=== PATIENT | male | born 1960 | race Caucasian/White ===

== ENCOUNTER 2024-10-22 08:17 | Outpatient (AMB) | payer MEDICAID, SELFPAY ==
[2024-10-22 08:24] VITALS: BP 130/68; PULSE 55; O2SAT 97; BMI 25.9
--- NOTE | 2024-10-22 08:24 | A.OFFVIS_ITS ---
Vital Signs 10/22/24 08:24 Height 6 ft 1 in Weight 196 lb BMI 25.9 BP 130/68 Blood Pressure Location Lt brachial Position Sitting Pulse 55 Pulse Source Pulse Oximeter Pulse Oximetry (%) 97 Oxygen Delivery Method Room Air Intake Visit Reasons: Wrist Pain Intake Note: Patient is here for left wrist cortisone injection. HPI HPI Wrist Pain: Details: Last cortisone injection was in March. He is having constant left CMC and left 2nd PIP pain. [facility] Medical History (Updated 10/22/24 @ 22:52 by Hemant Murphy MD) ACL tear Aftercare following bilateral shoulder joint replacement surgery Surgical History (Updated 10/22/24 @ 08:31 by Maryan Villar CMA) Previous back surgery History of repair of right hip joint H/O right knee surgery Review of Systems Const All systems reviewed & are unremarkable except as noted in HPI and below Physical Exam Vital Signs: Last Vital Signs Pulse 55 10/22/24 08:24 BP 130/68 10/22/24 08:24 Pulse Ox 97 10/22/24 08:24 Oxygen Delivery Method Room Air 10/22/24 08:24 BMI result Body Mass Index 25.9 Const Other: General: Comfortable Skin: No lesions seen MSK: Squaring of bilateral CMCs. Tender left CMC on palpation. Left 2nd Sandra's node present with tenderness on palpation. There is subluxation of left 2nd PIP. Good mailroom supervisor bilateral. Office Procedures AMB Joint Injection/Aspiration Joint Injection/Aspiration Details: Left CMC Prep: site was prepped using aseptic technique Injected: 10 mg of, Kenalog, with 0.25 mL of and 1% plain lidocaine Procedure: The patient tolerated the procedure well. Postprocedure protocol was discussed with patient. Coding - Small Joint Procedure code (CPT) selection complete AMB Joint Injection/Aspiration Joint Injection/Aspiration Details: Left 2nd PIP Prep: site was prepped using aseptic technique Injected: 10 mg of, Kenalog, with 0.25 mL of and 1% plain lidocaine Procedure: The patient tolerated the procedure well. Postprocedure protocol was discussed with patient. Coding - Small Joint Procedure code (CPT) selection complete Office Meds lidocaine (PF) 10 mg/mL (1 %) injection solution Performing Provider: Hemant Murphy MD Performing Location: [facility] Administered by: Hemant Murphy MD on 10/22/24 22:47 Dose Route Admin Location Dispensed Lot Number Expiration Date [facility] Newspaper Editor Managing 2.5 mg Infiltration 2 mL [id number] [employer] Kenalog 40 mg/mL suspension for injection Performing Provider: Hemant Murphy MD Performing Location: [facility] Administered by: Hemant Murphy MD on 10/22/24 22:47 Dose Route Admin Location Dispensed Lot Number Expiration Date [facility] Newsp[employer] Managing 10 mg intra-articular 1 mL AP [id number] [employer] lidocaine (PF) 10 mg/mL (1 %) injection solution Performing Provider: Hemant Murphy MD Performing Location: [facility] Administered by: Hemant Murphy MD on 10/22/24 22:47 Dose Route Admin Location Dispensed Lot Number Expiration Date [facility] Newsp[employer] Managing 2.5 mg Infiltration 2 mL [id number] [employer] Kenalog 40 mg/mL suspension for injection Performing Provider: Hemant Murphy MD Performing Location: [facility] Administered by: Hemant Murphy MD on 10/22/24 22:47 Dose Route Admin Location Dispensed Lot Number Expiration Date [facility] Newsp[employer] Managing 10 mg intra-articular 1 mL AP [id number] [employer] Assessment & Plan Assessment & Plan (1) Osteoarthritis, hand: Comment: Pain is uncontrolled and left CMC and left 2nd PIP. Code(s): M19.049 - Primary osteoarthritis, unspecified hand Category: Medical Qualifiers: Osteoarthritis type: primary Laterality: left Qualified Code(s): M19.042 - Primary osteoarthritis, left hand Plan: Intra-articular cortisone injections given to left CMC and left 2nd PIP Return to clinic in 3 months [facility] requested Orders: Orders AMB Joint Injection/Aspiration Today M18.12 - Unilateral primary osteoarthritis of first carpometacarpal joint, left hand, M19.049 - Primary osteoarthritis, unspecified hand AMB Joint Injection/Aspiration Today M19.049 - Primary osteoarthritis, unspecified hand Medications: New lidocaine (PF) 2.5 mg (0.25 mL) Infiltration ONCE 0.25 mL 0RF M18.12 - Unilateral primary osteoarthritis of first carpometacarpal joint, left hand, M19.049 - Primary osteoarthritis, unspecified hand lidocaine (PF) 2.5 mg (0.25 mL) Infiltration ONCE 0.25 mL 0RF M19.049 - Primary osteoarthritis, unspecified hand diclofenac sodium 1% (Arthritis Pain (diclofenac)) apply to affected area every 4-6 hours PRN 2 grams topical QID 100 grams 11RF Kenalog (triamcinolone acetonide) 10 mg (0.25 mL) intra-articular ONCE 0.25 mL 0RF NS M18.12 - Unilateral primary osteoarthritis of first carpometacarpal joint, left hand, M19.049 - Primary osteoarthritis, unspecified hand Kenalog (triamcinolone acetonide) 10 mg (0.25 mL) intra-articular ONCE 0.25 mL 0RF NS M19.049 - Primary osteoarthritis, unspecified hand Coding Level of Care Code Est Pt Level 3 (94009) Complex EM visit Add On G2211 Diagnoses Primary osteoarthritis of left hand M19.042 Osteoarthritis type: primary Laterality: left CPT Codes Coding - 72507 - Small joint: 59206 - Small Joint ([id number]) Coding - 94622 - Small joint: 09847 - Small Joint ([id number])
== END 2024-10-22 09:04 | disposition home or self-care (01) ==
PROVIDERS: PCP Internal Medicine; Visit Provider Internal Medicine Rheumatology
DX: M18.12 Unilateral primary osteoarthritis of first carpometacarpal joint, left hand (principal); M19.049 Primary osteoarthritis, unspecified hand; M19.042 Primary osteoarthritis, left hand
CPT/HCPCS: 20600; 99213

== ENCOUNTER → 2024-10-22 08:17 | Outpatient (BNVA) | payer MEDICAID, SELFPAY | PROVIDERS: PCP Internal Medicine; Visit Provider Internal Medicine Rheumatology | DX: M19.042 Primary osteoarthritis, left hand (principal) | CPT/HCPCS: 20600; 99212; J2003; J3300 ==

== ENCOUNTER 2025-08-16 10:40 | Outpatient (AMB) | payer BC, MEDICARE, SELFPAY ==
[2025-08-16 10:42] VITALS: BMI 25.9
--- NOTE | 2025-08-16 10:42 | MHC.OFFVIS ---
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 Patient reports ongoing pain, he was seen at [facility] and was receiving cortisone injection. After a while these have stopped working and no longer provide him with relief. He attended therapy about a year ago and continues at home exercise. He complains of difficulty with stair use and walking his dog. He would like to discuss surgical intervention. He states that he is currently undergoing BCG treatment with urology and should be cleared in September to proceed with a replacement. Allergies No Known Allergies Allergy (Verified 08/16/25 10:52) Medication List - Last Reconciled 08/16/25 by Yessy Cheney PA-C bupropion HCl SR (Wellbutrin SR) 150 mg PO QAM clonazepam 0.5 mg PO DAILY diclofenac sodium 1% (Arthritis Pain (diclofenac)) 2 grams topical QID trazodone 50 mg PO BEDTIME PRN HPI HPI COMMERCIAL AGENT-Left Hip Pain: Details: 65 yo male presents to the office today for left hip OA. He had a RT LATRICIA performed by pilo in 2010. RT TKA by Dr okeefe in approx 3 years ago . He states his recovery was straight forward, no complicatons. Left hip pain has been present for the last few years. He was going to [facility], he had steroid injections every 3 months for a few years until it no longer worked. He was doing PT at [facility]. He states on a daily basis the stability walking his dog, stairs and distance are challenging. He states the pain is unbearable. He is currently undergoing treatment for bladder cancer and he has two more weeks of BCG treatment. He states by September he should be cleared for surgery. He is no longer on sublocade or suboxone. Has not used the meds in about a year. [facility] Medical History (Updated 08/17/25 @ 07:45 by Yessy Cheney PA-C) ACL tear Aftercare following bilateral shoulder joint replacement surgery Surgical History (Updated 08/16/25 @ 10:57 by Angela Meza [facility]) History of transurethral resection of ureterocele Hx of shoulder replacement Previous back surgery History of repair of right hip joint H/O right knee surgery Social History (Updated 08/16/25 @ 10:58 by Angela Meza Hiren) Current occupational status: employed Current occupation: Contractor Review of Systems Const All systems reviewed & are unremarkable except as noted in HPI and below Physical Exam Vital Signs: BMI result Body Mass Index 25.9 Const General: cooperative and no acute distress Orientation/consciousness: patient oriented x3 Resp Effort & Inspection: normal respiratory effort and able to speak in complete sentences Cardio Peripheral pulses: Peripheral pulses 2+ throughout Neuro General: patient oriented x3 Extrem Other: Patient walks with antalgis gait. Left hip pain with ROM that extends posterior and into the groin. Calf supple non tender, NVI. Results Reviewed Results Reviewed: XR hip LT min 2V IMPRESSION: Moderate to severe osteoarthrosis/osteoarthritis, left hip. Assessment & Plan Assessment & Plan (1) Osteoarthritis of left hip: Code(s): M16.12 - Unilateral primary osteoarthritis, left hip Category: Medical Plan: We had a lengthy discussion about the extent of his OA and options available which include surgical intervention. He is interested in pursuing Total hip arthroplasty to improve his functional capacity and daily activities. I explained to him the procedure in detail, the hospital stay and details about post op rehab and precautions. He does understand all this and would like to move forward. He will see Dr Corcoran this to discuss further. All questions were answered. Orders: Orders XR hip LT min 2V 08/16/25 M25.552 - Pain in left hip Coding Level of Care Code New Pt Level 4 (90300) Complex EM visit Add On G2211 Diagnoses Osteoarthritis of left hip M16.12
--- OUTSIDE RECORDS SUMMARY | 2025-08-16 13:03 | XMS_ITS | Clinical Summary ---
Author Organization [facility] Address [address] [place] [address] Phone Care Team Providers Care Live Truck Technician Name Role Phone Irvin Redding MD Primary Care Provider [phone] Encounters Date Type Department Care Team Description 07/12/2025 Lab Requisition [facility] [address] [place] [id number] Kendell Craft MD Personal history of malignant neoplasm of bladder; Neoplasm of unspecified behavior of bladder 07/06/2025 Lab Requisition [facility] [address] [place] [address] Kendell Craft MD Neoplasm of unspecified behavior of bladder; Personal history of malignant neoplasm of bladder from Last 3 Months Surgical History Surgery Date Site/Laterality Comments JOINT REPLACEMENT PROCEDURE:JOINT REPLACEMENT SHOULDER SURGERY PROCEDURE:SHOULDER SURGERY BACK SURGERY PROCEDURE:BACK SURGERY Family History Medical History Relation Name Comments Cancer Father Relation Name Status Comments Father Social History Tobacco Use Types Packs/Day Years Used Date Smoking Tobacco: Never Assessed Sex and Gender Information Value Date Recorded Sex Assigned at Not on file Legal Sex Male 6:43 AM EST Gender Identity Not on file Sexual Orientation Not on file Obstetrics History Last Filed Vital Signs Vital Sign Reading Time Taken Comments Blood Pressure - - Pulse - - Temperature - - Respiratory Rate - - Oxygen Saturation - - Inhaled Oxygen Concentration - - Weight 88.5 kg (195 lb) 07/10/2022 10:05 AM EDT Height 185.4 cm (6' 1 ) 07/10/2022 10:05 AM EDT Body Mass Index 25.73 07/10/2022 10:05 AM EDT Plan of Treatment Health Maintenance Due Date Last Done Comments DTaP,Tdap,and Td Vaccines (1 - Tdap) 1977 Pneumococcal Vaccine: 50+ Ye ars (1 of 1 - PCV) 2008 Zoster Vaccines (1 of 2) 2008 Abdominal Aortic Aneurysm (A AA) Screen 09/16/2022 Cholesterol Screening (Lipid Panel) 09/16/2022 Hepatitis C Screening 09/16/2022 Social Influencers of Health Screening 09/16/2022 Falls Risk Assessment 2023 Depression Screening 10/14/2024 COVID-19 Vaccine (1 - 2023-2 5 season) 2025 Influenza Vaccine (#1) 2025 RSV Immunization Adult Patie nts (1 - 1-dose 75+ series) 2033 Colorectal Cancer Screening: Colonoscopy 05/06/2033 05/06/2023 HIB Vaccines Aged Out No longer eligi ble based on patient's age to complete this topic HPV Vaccines Aged Out No longer eligi ble based on patient's age to complete this topic Hepatitis A Vaccines Aged Out No long er eligible based on patient's age to complete this topic Hepatitis B Vaccines Aged Out No long er eligible based on patient's age to complete this topic IPV Vaccines Aged Out No longer eligi ble based on patient's age to complete this topic MMR Vaccines Aged Out No longer eligi ble based on patient's age to complete this topic Meningococcal ACWY Vaccine Aged Out N o longer eligible based on patient's age to complete this topic Meningococcal B Vaccine Aged Out No l onger eligible based on patient's age to complete this topic RSV Immunization Patients Un darcy 20 months Aged Out No longer eligible b ased on patient's age to complete this topic Varicella Vaccines Aged Out No longer eligible based on patient's age to complete this topic Procedures Procedure Name Priority Date/Time Associated Diagnosis Comments TISSUE EXAM Routine 07/02/2025 Neoplasm of unspecified behavior of bladder Personal history of malignant neoplasm of bladder NON-GYNECOLOGIC CYTOLOGY 07/01/2025 12:00 AM EDT Personal history of malignant neoplasm of bladder Neoplasm of unspecified behavior of bladder from Last 3 Months Results * Tissue Exam (07/02/2025) Final Diagnosis Urinary Bladder-TUR, -ENCRUSTED CYSTITIS, 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 Additional tissue and/or cytology sampling may be helpful, if clinically indicated. 07/07/2025 9:10 AM EDT [facility] Clinical Information Z85.51 - H/O Bladder neoplasm (malignant) D49.4 [id number] 07/07/2025 9:10 AM EDT [facility] Gross Description A. Urinary Bladder, Tumor: Labeled Bladder tumor . Received in formalin are four soft, timmons-red tissue fragments, measuring 0.6 x 0.4 x 0.3 cm in greatest diameters, which are wrapped in paper and submitted in toto in one cassette, 4 pieces, multiple levels. /al 07/07/2025 9:10 AM EDT [facility] Disclaimer Unless otherwise specified, all tissue is 10% NB formalin fixed and paraffin embedded. Technical pathology services provided by [facility] at [address] [place] [address] [address], [place] [address] (CLIA #[id number]/Sa penny Bruno MD, Machine Printer Hose) 07/07/2025 9:10 AM EDT [facility] Tissue Urinary bladder structure / Unknown 07/02/2025 07/06/2025 12:27 PM EDT us Kendell Craft MD LAB PATHOLOGY ORDERABLES Fi nal Result [facility] [address] [place] [address], * Non-gynecologic cytology (07/01/2025 12:00 AM EDT) Final Diagnosis A. Cystoscopic, [id number]: Negative for high grade urothelial carcinoma. Acute inflammatory cells are present. Results of UroVysion fluorescence in situ hybridization (FISH) testing: CEP3: Normal CEP7: Normal CEP17: Normal LSI 9p21: Normal Interpretation: Normal profile Controls stained appropriately. Note: The results are intended as a screening device and should be interpreted in association with other clinical and pathological findings. 07/28/2025 5:02 PM EDT [facility] at 1702 EDT Specimen A Adequacy Satisfactory for evaluation 07/28/2025 5:02 PM EDT [facility] Clinical Information Z85.51 Personal history of malignant neoplasm D49.4 Neoplasm of unspecified behavior... Urine Cytology/FISH (now) 07/28/2025 5:02 PM EDT [facility] Gross Description A. Cystoscopic, [id number]: Received one ThinPrep slide for cytology and one ThinPrep slide for UroVysion FISH 07/28/2025 5:02 PM EDT [facility] Disclaimer Unless otherwise specified, all tissue is 10% NB formalin fixed and paraffin embedded. Technical pathology services provided by [facility] at [address], [place] [address] (CLIA #[id number]/Latonia Bruno MD, Machine Printer Hose) 07/28/2025 5:02 PM EDT [facility] Urine Cystoscope / Unknown 07/01/2025 07/12/2025 10:48 AM EDT us Kendell Craft MD LAB CYTOLOGY ORDERABLES Fin al Result [facility] [address] [place] [address], from Last 3 Months Insurance MEDICARE [facility] ([facility]) [facility] MAIL ADMIN [address] ([facility]) Advance Directives Documents on File Type Date Recorded Patient Metal Caster Expl anation Health Care Decision (hx) 07/27/2022 AD SHIN DIRECTIVE Health Care Decision (hx) 07/27/2022 AD SHIN DIRECTIVE Health Care Decision (hx) 07/27/2022 AD SHIN DIRECTIVE Care Teams Live Truck Technician Relationship Specialty Start Date End Date Irvin Redding MD [address] [place] [phone] PCP - General Mercury Recoverer 10/22/19
--- OUTSIDE RECORDS SUMMARY | 2025-08-16 13:03 | XMS_ITS | Clinical Summary ---
Author Organization [facility] Address [address] [place] [address] Care Team Providers Care Receiving Lead Name Role Phone Irvin Redding MD Primary Care Provider [phone] Allergies No known active allergies Medications buPROPion (WELLBUTRIN XL) 150 MG 24 hr tablet Take 1 tablet (150 mg total) by mouth every morning. 3 Active clonazePAM (KlonoPIN) 0.5 MG tablet Take 1 tablet (0.5 mg total) by mouth nightly as needed. 3 Active testosterone (ANDROGEL) 20.25 mg/pump (1.62%) transdermal gel 2 PUMPS DAILY DIRECTED WASH HANDS AFTER USE/ROTATE SITE 3 Active traZODone (DESYREL) 50 MG tablet Take 1 tablet (50 mg total) by mouth nightly as needed. 3 Active Family History Medical History Relation Name Comments Colon cancer Father Colonic polyp Sister Relation Name Status Comments Father Sister Social History Tobacco Use Types Packs/Day Years Used Date Smoking Tobacco: Never Smokeless Tobacco: Never Alcohol Use Standard Drinks/Week Comments Not Currently 0 (1 standard drink = 0.6 oz pur e alcohol) AUDIT-C Answer Date Recorded Q1: How often do you have a drink containing alcohol? Never 05/01/2023 Q2: How many drinks containi ng alcohol do you have on a typical day when you are drinking? Patient does not drink Q3: How often do you have si x or more drinks on one occasion? Never 05/01/2023 Sex and Gender Information Value Date Recorded Sex Assigned at Not on file Legal Sex Male 4:51 PM EDT Gender Identity Not on file Sexual Orientation Not on file Last Filed Vital Signs Vital Sign Reading Time Taken Comments Blood Pressure 114/56 05/06/2023 10:16 AM EDT Pulse 50 05/06/2023 10:16 AM EDT Temperature 36.2 C (97.1 F) 05/06/2023 9:00 AM EDT Respiratory Rate 16 05/06/2023 9:56 AM EDT Oxygen Saturation 95% 05/06/2023 10:16 AM EDT Inhaled Oxygen Concentration - - Weight 87.1 kg (192 lb) 05/01/2023 3:37 PM EDT Height 186.7 cm (6' 1.5 ) 05/01/2023 3:37 PM EDT Body Mass Index 24.99 05/01/2023 3:37 PM EDT Plan of Treatment Health Maintenance Due Date Last Done Comments Advance Care Planning 1960 Hepatitis C Virus Screening 1960 DTaP/Tdap/Td Vaccines (1 - Tdap) 1977 Pneumococcal Vaccines 50+ (1 of 1 - PCV) 2008 Zoster (Shingles) Vaccine (1 of 2) 2008 Influenza Vaccine 05/14/2025 09/01/2022, , 06/28/2020, Additional history exists COVID-19 Vaccine (2024- season) 2025 09/10/2021, 02/10/2021, 01/19/2021 Colonoscopy 05/06/2028 05/06/2023 RSV Vaccine 50 years and older and Patients (1 - 1-dose 75+ series) 2033 Hepatitis B Vaccines Aged Out No long er eligible based on patient's age to complete this topic Insurance MEDICARE PART A & B [place] [id number] Care Teams Receiving Lead Relationship Specialty Start Date End Date Irvin Redding MD [address] [place] [id number] PCP - General 04/23/23
--- OUTSIDE RECORDS SUMMARY | 2025-08-16 13:03 | XMS_ITS ---
Author Name [facility] Organization Unknown History of Medication Use Medication Directions Dispensed Refills Start Date End Date Stat us lidocaine (PF) 100 mg/5 mL (2 %) injection syringe Take 4 mL by injection route. 03/13/2024 active Marcaine (PF) 0.5 % (5 mg/mL) injection solution Take 4 mL by injection route. 03/13/2024 active triamcinolone acetonide 40 mg/mL suspension for injection Take 40 mg by injection route. 03/13/2024 active lidocaine (PF) 100 mg/5 mL (2 %) injection syringe Take 4 mL by injection route. 11/14/2023 active lidocaine (PF) 10 mg/mL (1 %) injection solution Take 2 mL by injection route. 08/13/2023 active amoxicillin 500 mg capsule Take 4 tablets one hour prior to dental procedure 07/30/2023 active Kenalog 40 mg/mL suspension for injection Take 1 mL by injection route. 05/09/2023 active lidocaine (PF) 10 mg/mL (1 %) injection solution Take 2 mL by injection route. 05/09/2023 active warfarin 1 mg tablet TAKE 5 TABLETS BY MOUTH EVERY EVENING UNLESS OTHERWISE INSTRUCTED BY PROVIDER 08/13/20 23 completed warfarin 1 mg tablet TAKE 5 TABLETS BY MOUTH EVERY EVENING UNLESS OTHERWISE INSTRUCTED BY PROVIDER 08/13/20 23 completed acetaminophen 500 mg tablet TAKE 2 TABLETS BY MOUTH THREE TIMES DAILY 07/30/20 23 completed acetaminophen 500 mg tablet TAKE 2 TABLETS BY MOUTH THREE TIMES DAILY 07/30/20 23 completed buprenorphine 12 mg-naloxone [address] ONE FILM UNDER THE TONGUE ONCE A DAY 07/30/20 23 completed buprenorphine 12 mg-naloxone [address] ONE FILM UNDER THE TONGUE ONCE A DAY 07/30/20 23 completed buprenorphine 4 mg-naloxone [address] ONE FILM UNDER THE TONGUE ONCE A DAY 07/30/20 23 completed buprenorphine 4 mg-naloxone [address] ONE FILM UNDER THE TONGUE ONCE A DAY 07/30/20 completed buprenorphine 8 mg-naloxone [address] 1 FILM UNDER YOUR TONGUE ONCE DAILY 07/30/20 completed bupropion HCl XL 150 mg 24 hr tablet, extended release TAKE 1 TABLET BY MOUTH EVERY DAY 07/30/20 active celecoxib 200 mg capsule TAKE 1 CAPSULE BY MOUTH DAILY 07/30/20 completed celecoxib 200 mg capsule TAKE 1 CAPSULE BY MOUTH DAILY 07/30/20 completed enoxaparin 40 mg/0.4 mL subcutaneous syringe INJECT THE CONTENTS OF 1 SYRINGE SUBCUTANEOUSLY EVERY DAY FOR 10 DAYS 07/30/20 active gabapentin 300 mg capsule TAKE 1 CAPSULE BY MOUTH AT BEDTIME 07/30/20 active gabapentin 300 mg capsule TAKE 1 CAPSULE BY MOUTH AT BEDTIME 07/30/20 completed hydromorphone 2 mg tablet TAKE 1 TABLET BY MOUTH EVERY 6 TO 8 HOURS NEEDED FOR SEVERE PAIN 07/30/20 completed hydromorphone 2 mg tablet TAKE 1 TABLET BY MOUTH EVERY 6 TO 8 HOURS NEEDED FOR SEVERE PAIN 07/30/20 completed hydromorphone 4 mg tablet TAKE 1 TO 2 TABLETS BY MOUTH EVERY 4 HOURS NEEDED FOR PAIN 07/30/20 active hydromorphone 4 mg tablet TAKE 1 TO 2 TABLETS BY MOUTH EVERY 4 HOURS NEEDED FOR PAIN 07/30/20 completed methocarbamol 750 mg tablet TAKE 1 TABLET BY MOUTH THREE TIMES DAILY 07/30/20 completed methocarbamol 750 mg tablet TAKE 1 TABLET BY MOUTH THREE TIMES DAILY 07/30/20 completed naloxone 4 mg/actuation nasal spray SPRAY OR APPLY 4MG INSIDE NOSE ONCE FOR 1 DOSE. MAY REPEAT DOSE 2 TO 3 MINUTES UNTIL PATIENT RESPONDS OR EMS ARRIVES 07/30/20 active naloxone 4 mg/actuation nasal spray SPRAY OR APPLY 4MG INSIDE NOSE ONCE FOR 1 DOSE. MAY REPEAT DOSE 2 TO 3 MINUTES UNTIL PATIENT RESPONDS OR EMS ARRIVES 07/30/20 completed Paxlovid 300 mg (150 mg x 2)-100 mg tablets in a dose pack TAKE 3 TABLETS LABELLED TWICE A DAY FOR X 5 DAYS 07/30/20 completed Paxlovid 300 mg (150 mg x 2)-100 mg tablets in a dose pack TAKE 3 TABLETS LABELLED TWICE A DAY FOR X 5 DAYS 07/30/20 completed Suboxone 2 mg-0.[address] 1 FILM UNDER TONGUE EVERY DAY NEEDED FOR WITHDRAWAL SYMPTOMS 07/30/20 completed Suboxone 2 mg-0.[address] 1 FILM UNDER TONGUE EVERY DAY NEEDED FOR WITHDRAWAL SYMPTOMS 07/30/20 completed Testim 50 mg/5 gram (1 %) transdermal gel ONCE A DAY APPLY ONE PACKET TO CLEAN DRY AREA 07/30/20 completed Testim 50 mg/5 gram (1 %) transdermal gel ONCE A DAY APPLY ONE PACKET TO CLEAN DRY AREA 07/30/20 completed Marcaine (PF) 0.5 % (5 mg/mL) injection solution active amoxicillin 500 mg capsule active triamcinolone acetonide 40 mg/mL suspension for injection active lidocaine (PF) 10 mg/mL (1 %) injection solution active lidocaine (PF) 100 mg/5 mL (2 %) injection syringe active Kenalog 40 mg/mL suspension for injection active lidocaine (PF) 100 mg/5 mL (2 %) injection syringe active amoxicillin 500 mg capsule TAKE 4 CAPSULES BY MOUTH 1 HOUR BEFORE DENTAL PROCEDURE active amoxicillin 500 mg tablet TAKE 4 TABS 1 HOUR PRIOR TO DENTAL APPOINTMENT active amoxicillin 500 mg tablet TAKE 4 TABS 1 HOUR PRIOR TO DENTAL APPOINTMENT active amoxicillin 875 mg-potassium clavulanate 125 mg tablet TAKE 1 TABLET BY MOUTH EVERY 12 HOURS FOR 14 DAYS active buprenorphine 8 mg-naloxone 2 mg sublingual film DISSOLVE 1 FILM UNDER THE TONGUE EVERY DAY active bupropion HCl XL 150 mg 24 hr tablet, extended release TAKE 1 TABLET BY MOUTH EVERY DAY active clonazepam 0.5 mg tablet TAKE 0.5 TABLETS BY MOUTH EVERY MORNING AND TAKE 1 TABLET BY MOUTH EVERY NIGHT AT BEDTIME active clonazepam 0.5 mg tablet TAKE 1/2 TABLET BY MOUTH IN THE MORNING AND 1 TABLET BY MOUTH AT BEDTIME DIRECTED active cyclobenzaprine 5 mg tablet TAKE 1 TABLET BY MOUTH THREE TIMES DAILY FOR 10 DAYS NEEDED FOR MUSCLE SPASM active cyclobenzaprine 5 mg tablet TAKE 1 TABLET BY MOUTH THREE TIMES DAILY FOR 10 DAYS NEEDED FOR MUSCLE SPASM active diclofenac 1 % topical gel APPLY 2 GM TOPICALLY 4 TIMES A DAY active diclofenac 1 % topical gel APPLY 2 GM TOPICALLY 4 TIMES A DAY active enoxaparin 40 mg/0.4 mL subcutaneous syringe INJECT THE CONTENTS OF 1 SYRINGE SUBCUTANEOUSLY EVERY DAY FOR 10 DAYS active oxycodone 5 mg tablet TAKE 1 TABLET BY MOUTH EVERY 6 HOURS NEEDED FOR SEVERE PAIN active oxycodone 5 mg tablet TAKE 1 TABLET BY MOUTH EVERY 6 HOURS NEEDED FOR SEVERE PAIN active Stimulant Laxative Plus 8.6 mg-50 mg tablet TAKE 2 TABLETS BY MOUTH AT BEDTIME active Stimulant Laxative Plus 8.6 mg-50 mg tablet TAKE 2 TABLETS BY MOUTH AT BEDTIME active testosterone 20.25 mg/1.25 gram per pump act.(1.62 %) transdermal gel 2 PUMPS DAILY DIRECTED WASH HANDS AFTER USE/ROTATE SITE active testosterone 20.25 mg/1.25 gram per pump act.(1.62 %) transdermal gel 2 PUMPS DAILY DIRECTED WASH HANDS AFTER USE/ROTATE SITE active trazodone 50 mg tablet TAKE 1/2 TABLET BY MOUTH AT BEDTIME active trazodone 50 mg tablet TAKE 1/2 TABLET BY MOUTH AT BEDTIME active Triple Antibiotic 3.5 mg-400 unit-5,000 unit/gram topical ointment active Problems Problem Status Onset Date Problem Type Date of Resoluti on Source History of right total knee replacement active 2024-02-20 ProblemAct [facility]_AONECT Trochanteric bursitis of left hip active 2023-02-15 ProblemAct E[facility]_AONECT Iliotibial band friction syndrome of left knee active 2024-03-13 ProblemAct ENS_AO NECT Encounters Encounter Type Encounter Reason Primary Diagnosis Location Date Ambulatory [facility] 06/02/2024 Ambulatory [facility] 05/21/2024 Ambulatory [facility] 05/06/2024 Ambulatory [facility] 04/30/2024 Ambulatory [facility] 03/16/2024 Ambulatory [facility] 03/13/2024 Ambulatory [facility] 03/11/2024 Ambulatory [facility] 03/05/2024 Ambulatory [facility] 02/24/2024 Ambulatory [facility] 02/14/2024 Ambulatory [facility] 02/10/2024 Ambulatory [facility] 09[facility]09/2023 Ambulatory [facility] 05/24/2023 Ambulatory [facility] 05/09/2023 Ambulatory [facility] 05/07/2023 Ambulatory Encounter for screening for malignant neoplasm of colon Encounter for screening for malignant neoplasm of colon [facility] 05/06/2023 Ambulatory [facility] 02/15/2023 Ambulatory [facility] 02/15/2023 Ambulatory [facility] 02/13/2023 Ambulatory [facility] 01/10/2023 Care Team Organization Name Specialty Phone Email Start Date End Da te [facility] 05/06/2023 [facility] 09/13/202206/01 [facility]
--- OUTSIDE RECORDS SUMMARY | 2025-08-16 13:03 | XMS_ITS | Encounter Summary ---
[facility] Address [address] [place] [address] Care Team Providers Care Yacht Master Name Role Phone Irvin Redding MD Primary Care Provider [phone] Encounter Details Date Type Department Care Team (Late st Contact Info) Description 07/06/2025 Lab Requisition [facility] - Main Lab [address] [facility] [place] [id number] Kendell Craft MD [address] [facility] [address] [place] [address] Neoplasm of unspecified behavior of bladder; Personal history of malignant neoplasm of bladder Social History Tobacco Use Types Packs/Day Years Used Date Smoking Tobacco: Never Assessed Sex and Gender Information Value Date Recorded Sex Assigned at Not on file Legal Sex Male 6:43 AM EST Gender Identity Not on file Sexual Orientation Not on file documented as of this encounter Plan of Treatment Not on file documented as of this encounter Procedures Procedure Name Priority Date/Time Associated Diagnosis Comments TISSUE EXAM Routine 07/02/2025 Neoplasm of unspecified behavior of bladder Personal history of malignant neoplasm of bladder documented in this encounter Results * Tissue Exam (07/02/2025) Final Diagnosis Urinary Bladder-TUR, -ENCRUSTED CYSTITIS, EXTENSIVELY (>90%) DENUDED 07/07/2025 9:10 AM EDT [facility] Comment While no neoplasm is observed in this specimen, denudation may sometimes reflect cases of CIS where the neoplastic cells have shed as a result of discohesion. Additional tissue and/or cytology sampling may be helpful, if clinically indicated. 07/07/2025 9:10 AM EDT [facility] Clinical Information Z85.51 - H/O Bladder neoplasm (malignant) D49.4 [id number] 07/07/2025 9:10 AM EDT [facility] Gross Description A. Urinary Bladder, Tumor: Labeled Bladder tumor . Received in formalin are four soft, timmons-red tissue fragments, measuring 0.6 x 0.4 x 0.3 cm in greatest diameters, which are wrapped in paper and submitted in toto in one cassette, 4 pieces, multiple levels. /al 07/07/2025 9:10 AM EDT [facility] Disclaimer Unless otherwise specified, all tissue is 10% NB formalin fixed and paraffin embedded. Technical pathology services provided by [facility] [address] [facility] [address] [address] (CLIA #[id number]/Sa penny Bruno MD, Production Lead) 07/07/2025 9:10 AM EDT [facility] Tissue Urinary bladder structure / Unknown 07/02/2025 07/06/2025 12:27 PM EDT us Kendell Craft MD LAB PATHOLOGY ORDERABLES Fi nal Result [facility] [address] [place] [address], documented in this encounter Visit Diagnoses Diagnosis Neoplasm of unspecified behavior of bladder Personal history of malignant neoplasm of bladder documented in this encounter Care Teams Yacht Master Relationship Specialty Start Date End Date Irvin Redding MD [address] [place] [address] PCP - General Nanotechnician 10/22/19 documented as of this encounter
--- OUTSIDE RECORDS SUMMARY | 2025-08-16 13:03 | XMS_ITS | Clinical Summary ---
Author Organization [facility] Address [address] [place] [address] Care Team Providers Care Yarn Twister Name Role Phone Stephanie Mendoza SNEHA Primary Care Provider [phone] Source Comments PLEASE NOTE, if this patient is a minor, it may be UNLAWFUL to discuss sensitive information that is contained in these records (such as FAMILY PLANNING, MENTAL HEALTH or SUBSTANCE ABUSE) with the minor patient's parent or other person without the patient's specific authorization.[facility] Allergies Active Allergy Reactions Criticality Noted Date Comments Aspirin 05/10/2015 Per prior records Clonazepam Other (See Comments) 05/10/2015 Cause sedation Per prior records Codeine Itching 05/10/2015 Per prior records Medications azithromycin (ZITHROMAX) 250 mg tabletIndication s:Sinusitis, bacterial Take 1 Tab by mouth once daily. 6 Tab 0 07/05/2015 Active dextromethorphan (SCOT-TUSSIN) 10 mg/5 mL liquidIndication s:Cough Take 5 mL by mouth every 4 to 6 (four to six) hours as needed for cough or congestion. 1 Bottle 1 07/05/2015 Active acetaminophen (TYLENOL) 500 mg tabletIndication s:Fever, unspecified fever cause Take 1 Tab by mouth every 6 (six) hours as needed for pain or fever. 30 Tab 0 07/05/2015 Active amoxicillin (AMOXIL) 500 mg capsule 07/04/2015 Active SUBOXONE 8-2 mg SL film 07/05/2015 Active buPROPion (WELLBUTRIN XL) 150 mg 24 hr tablet Take 150 mg by mouth once daily. 5 06/13/2015 Active clonazePAM (KLONOPIN) 0.5 mg tablet 5 06/10/2015 Active QUEtiapine (SEROQUEL) 25 mg tablet Take 25 mg by mouth once daily. 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 ?Rotator cuff Chronic lower back pain 05/10/2015 Overview (05/10/2015): Per prior records, H/o L4-L5 Laminectomy ? 02/2011. MRI L spine(03/2011@ [facility]): L4-L5 partial Laminectomy and Rt paracentral microdiscectomy changes. No evidence of recurrent disc herniation. Stable mild L3-4 Rt foraminal disc herniation. Grossly stable multilevel neural foraminal narrowing. Hypogonadism, male 05/10/2015 Overview (05/10/2015): Per prior records- idiopathic hypogonadism, was on Androgel 7.5gm to skin qd. Follows endocrine- Dr. Margaux Al. Testosterone level= 298(02/2009)--> 902((01/25/15). H/O: depression and anxiety 05/10/2015 Overview (05/10/2015): Per prior records, he was on seroquel 50mg prn, Wellbutrin 150mg qd. Used to follow with Psychiatry and was on remeron, celexa, Haldol, valium, Lorazepam, Klonopin in the past. History of elevated PSA 05/10/2015 Overview (05/10/2015): Prostate Bx neg in 12/2010 . Follows at [facility] once A yr for PSA and DARLENE surveillance. Last PSA= 2.4(01/25/15). History of heroin abuse 05/10/2015 Overview (05/10/2015): He was started on Clonazepam for detox by his prior pcp in 03/2013 Hyperlipidemia 05/10/2015 H/O sinus bradycardia 05/10/2015 Overview (05/10/2015): VR ~43 in 2006 Family History Medical History Relation Name Comments Cancer Father colon ca Relation Name Status Comments Father Social History Tobacco Use Types Packs/Day Years Used Date Smoking Tobacco: Never Assessed Social Connections Answer Date Recorded Social Connections and Isolation 0 06/07/2019 Financial Resource Strain Answer Date R ecorded Financial Resource Strain 0 2018 Stress Answer Date Recorded Stress 0 06/07/2019 Physical Activity Answer Date Recorded Physical Activity 0 06/07/2019 Food Insecurity Answer Date Recorded Food 0 06/07/2019 Transportation Needs Answer Date Record ed Transportation 0 06/07/2019 Housing Stability Answer Date Recorded Housing 0 06/07/2019 Safety and Environment Answer Date Petey rded Safety 0 06/07/2019 Utilities Answer Date Recorded Utilities 0 06/07/2019 Employment Answer Date Recorded Employment 0 06/07/2019 Sex and Gender Information Value Date Recorded Sex Assigned at Not on file Legal Sex Male 8:34 AM PDT Gender Identity Not on file Sexual Orientation Not on file Last Filed Vital Signs Vital Sign Reading Time Taken Comments Blood Pressure 126/64 07/05/2015 3:08 PM EDT Pulse 58 07/05/2015 3:08 PM EDT Temperature 36.6 C (97.9 F) 07/05/2015 3:08 PM EDT Respiratory Rate 14 07/05/2015 3:08 PM EDT Oxygen Saturation - - Inhaled Oxygen Concentration - - Weight 88.5 kg (195 lb) 07/05/2015 3:08 PM EDT Height 186.7 cm (6' 1.5 ) 07/05/2015 3:08 PM EDT Body Mass Index 25.38 07/05/2015 3:08 PM EDT Plan of Treatment Not on file Insurance [employer] Care Teams Yarn Twister Relationship Specialty Start Date End Date Stephanie Mendoza FNP [address] [place] [address] PCP - General 12/09/18
--- OUTSIDE RECORDS SUMMARY | 2025-08-16 13:03 | XMS_ITS | Encounter Summary ---
Author Organization [facility] Address [address] [place] [address] Care Team Providers Care Internal Consultant Name Role Phone Irvin Redding MD Primary Care Provider [phone] Encounter Details Date Type Department Care Team (Late st Contact Info) Description 02/17/2025 Lab Requisition [facility] - Main Lab [address] [facility] [place] [phone] Kendell Craft MD [address] [place] [address] Elevated prostate specific antigen (PSA); Neoplasm of uncertain behavior, unspecified Social History Tobacco Use Types Packs/Day Years [...] Procedure Name Priority Date/Time Associated Diagnosis Comments AP OUTSIDE CONSULT Routine 02/12/2025 12 :00 AM EDT Elevated prostate specific antigen (PSA) Neoplasm of uncertain behavior, unspecified documented in this encounter Results * Anatomic pathology outside consult (02/12/2025 12:00 AM EDT) Final Diagnosis A. 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 Note: Abnormal results are considered suspicious for urothelial carcinoma. 03/03/2025 5:02 PM EDT [facility] Clinical Information Neoplasm of uncertain behavior unspecified D48.9 Elevated prostate-specifi c antigen (PSA) R97.20 Urine Cytology/FISH (now) 03/03/2025 5:02 PM EDT [facility] Gross Description A. Cystoscopic, ([id number]): Received one ThinPrep slide for cytology and one ThinPrep slide for UroVysion FISH 03/03/2025 5:02 PM EDT [facility] Disclaimer Unless otherwise specified, all tissue is 10% NB formalin fixed and paraffin embedded. Technical pathology services provided by [facility] at [address] [place] [address] [address] [address] (CLIA #[id number]/Latonia Bruno MD, Neurology Specialist) 03/03/2025 5:02 PM EDT [facility] Tissue Cystoscope / Unknown 02/12/2025 02/17/2025 2:18 PM EDT us Kendell Craft MD LAB PATHOLOGY ORDERABLES Fi nal Result [facility] [address] [place] [address], documented in this encounter Visit Diagnoses Diagnosis Elevated prostate specific antigen (PSA) Neoplasm of uncertain behavior, unspecified documented in this encounter Care Teams Internal Consultant Relationship Specialty Start Date End Date Irvin Redding MD [address] [place] [address] PCP - General Aerial Crop Duster 10/22/19 documented as of this encounter
--- OUTSIDE RECORDS SUMMARY | 2025-08-16 13:04 | XMS_ITS | Encounter Summary ---
Author Organization [facility] Address [address] [place] [address] Care Team Providers Care Bass Singer Name Role Phone Irvin Redding MD Primary Care Provider [phone] Encounter Details Date Type Department Care Team (Late st Contact Info) Description 02/15/2025 Lab Requisition [facility] - Main Lab [address] [facility] [place] [phone] Kendell Craft MD [address] [facility] [address] [place] [address] Elevated prostate specific antigen (PSA) Social History Tobacco Use Types Packs/Day Years [...] Diagnosis Comments AP OUTSIDE CONSULT Routine 02/12/2025 Elevated prostate specific antigen (PSA) documented in this encounter Results * Anatomic pathology outside consult (02/12/2025) Final Diagnosis A. Prostate, Left [place] Biopsy: -BENIGN PROSTATE TISSUE B. Prostate, Left Lateral [place] Biopsy: -BENIGN PROSTATE TISSUE C. Prostate, Left Middle Middle Biopsy: -BENIGN PROSTATE TISSUE D. Prostate, Left Lateral [place] Biopsy: -BENIGN PROSTATE TISSUE E. Prostate, Left [place] Base Biopsy: -BENIGN PROSTATE TISSUE F. Prostate, Left Lateral Base Biopsy: -BENIGN PROSTATE TISSUE G. Prostate, Right [place] Biopsy: -BENIGN PROSTATE TISSUE H. Prostate, Right Lateral [place] Biopsy: -BENIGN PROSTATE TISSUE I. Prostate, Right Middle [place] Biopsy: -BENIGN PROSTATE TISSUE J. Prostate, Right Lateral [place] Biopsy: -BENIGN PROSTATE TISSUE K. Prostate, Right Middle [place] Biopsy: -BENIGN PROSTATE TISSUE L. Prostate, Right Lateral Base Biopsy: -BENIGN PROSTATE TISSUE M. Urinary Bladder, tumor-transur ethral resection: -PAPILLARY UROTHELIAL CARCINOMA, HIGH GRADE -Invasion: Not identified -No muscularis propria, (Detrusor muscle) present for evaluation -Lymphovascul ar invasion: Not identified -Urothelial carcinoma in situ: Not identified 02/16/2025 3:33 PM EDT [facility] Clinical Information Elevated PSA R97.20 PSA: 4.9 (02/12/25) [id number] 02/16/2025 3:33 PM EDT [facility] Gross Description A. Prostate, Left [place] Biopsy: Received, properly labeled, are two H and E stained slides and two unstained slides. B. Prostate, Left Lateral [place] Biopsy: Received, properly labeled, are two H and E stained slides and two unstained slides. C. Prostate, Left Middle [place] Biopsy: Received, properly labeled, are two H and E stained slides and two unstained slides. D. Prostate, Left Lateral [place] Biopsy: Received, properly labeled, are two H and E stained slides and two unstained slides. E. Prostate, Left Middle Base Biopsy: Received, properly labeled, are two H and E stained slides and two unstained slides. F. Prostate, Left Lateral Base Biopsy: Received, properly labeled, are two H and E stained slides and two unstained slides. G. Prostate, Right [place] Biopsy: Received, properly labeled, are two H and E stained slides and two unstained slides. H. Prostate, Right Lateral [place] Biopsy: Received, properly labeled, are two H and E stained slides and two unstained slides. I. Prostate, Right Middle [place] Biopsy: Received, properly labeled, are two H and E stained slides and two unstained slides. J. Prostate, Right Lateral [place] Biopsy: Received, properly labeled, are two H and E stained slides and two unstained slides. K. Prostate, Right Middle [place] Biopsy: Received, properly labeled, are two H and E stained slides and two unstained slides. L. Prostate, Right Lateral Base Biopsy: Received, properly labeled, are two H and E stained slides and two unstained slides. M. Urinary Bladder, tumor: Labeled Bladder tumor . Received in formalin are 3 soft, timmons-red tissue fragments, measuring 0.1x0.1x0.1cm in greatest diameters, which are wrapped in paper and submitted in toto in one cassette, 3 pieces, multiple levels. /al 02/16/2025 3:33 PM EDT [facility] Disclaimer Unless otherwise specified, all tissue is 10% NB formalin fixed and paraffin embedded. Technical pathology services provided by [facility] at [address], [place] [address] (CLIA #[id number]/S davion Bruno MD, Emergency Medicine Medical Director) 02/16/2025 3:33 PM EDT [facility] Tissue Urinary bladder structure / Unknown 02/12/2025 02/15/2025 3:47 PM EDT Tissue specimen (specimen) Prostate / Unknown 02/12/2025 02/15/2025 3: 50 PM EDT Tissue specimen (specimen) Prostate / Unknown 02/12/2025 02/15/2025 3: 50 PM EDT Tissue specimen (specimen) Prostate / Unknown 02/12/2025 02/15/2025 3: 50 PM EDT Tissue specimen (specimen) Prostate / Unknown 02/12/2025 02/15/2025 3: 50 PM EDT Tissue specimen (specimen) Prostate / Unknown 02/12/2025 02/15/2025 3: 50 PM EDT Tissue specimen (specimen) Prostate / Unknown 02/12/2025 02/15/2025 3: 50 PM EDT Tissue specimen (specimen) Prostate / Unknown 02/12/2025 02/15/2025 3: 50 PM EDT Tissue specimen (specimen) Prostate / Unknown 02/12/2025 02/15/2025 3: 50 PM EDT Tissue specimen (specimen) Prostate / Unknown 02/12/2025 02/15/2025 3: 50 PM EDT Tissue specimen (specimen) Prostate / Unknown 02/12/2025 02/15/2025 3: 50 PM EDT Tissue specimen (specimen) Prostate / Unknown 02/12/2025 02/15/2025 3: 50 PM EDT Tissue specimen (specimen) Urinary bladder structure / Unknown 02/12/2025 02/15/2025 3:50 PM EDT us Kendell Craft MD LAB PATHOLOGY ORDERABLES Fi nal Result [facility] ([facility]) [facility] [address] [place] [address], documented in this encounter Visit Diagnoses Diagnosis Elevated prostate specific antigen (PSA) documented in this encounter Care Teams Bass Singer Relationship Specialty Start Date End Date Irvin Redding MD [address] [place] [address] PCP - General Core Drill Operator Helper 10/22/19 documented as of this encounter
--- OUTSIDE RECORDS SUMMARY | 2025-08-16 13:04 | XMS_ITS | Encounter Summary ---
Author Organization [facility] Address [address] [place] [address] Care Team Providers Care Trust Administrative Assistant Name Role Phone Irvin Redding MD Primary Care Provider [phone] Encounter Details Date Type Department Care Team (Late st Contact Info) Description 02/19/2025 Lab Requisition [facility] - Main Lab [address] [facility] [place] [address] Geovany Jung MD [address] [facility] [address] [place] [phone] Neoplasm of unspecified behavior of bladder Social History Tobacco Use Types [...] Associated Diagnosis Comments AP OUTSIDE CONSULT Routine 02/18/2025 Neoplasm of unspecified behavior of bladder documented in this encounter Results * Anatomic pathology outside consult (02/18/2025) Final Diagnosis Urinary bladder-trans urethral resection: -PAPILLARY UROTHELIAL CARCINOMA, HIGH GRADE, WITH FOCAL ANAPLASTIC FEATURES -Tumor focally invades lamina propria (subepithelia l connective tissue) -Muscularis propria, (Detrusor muscle) present for evaluation -Lymphovascul ar invasion: Not identified -Urothelial carcinoma in situ: Not identified 02/24/2025 2:12 PM EDT [facility] Clinical Information Z85.51 - H/O bladder neoplasm (malignant) [id number] 02/24/2025 2:12 PM EDT [facility] Gross Description A. Urinary Bladder, Tumor: Labeled bladder tumor . Received in formalin is a 1.1 x 0.7 x 0.4 cm aggregate of friable, pink-timmons tissue fragments. The specimen is wrapped in paper and submitted in toto in 2 cassettes, multiple pieces each. /al 02/24/2025 2:12 PM EDT [facility] Disclaimer Unless otherwise specified, all tissue is 10% NB formalin fixed and paraffin embedded. Technical pathology services provided by [facility] at [address] [place] [address] [address] [address] (CLIA #[id number]/S davion Bruno MD, Cutter Apprentice Hand) 02/24/2025 2:12 PM EDT [facility] Tissue Urinary bladder structure / Unknown 02/18/2025 02/19/2025 3:49 PM EDT Geovany Jung MD LAB PATHOLOGY ORDERABLES Final Result [facility] [address] [place] [address], documented in this encounter Visit Diagnoses Diagnosis Neoplasm of unspecified behavior of bladder documented in this encounter Care Teams Trust Administrative Assistant Relationship Specialty Start Date End Date Irvin Redding MD [address] [place] [address] PCP - General Hand I Thermal Cutter 10/22/19 documented as of this encounter
--- OUTSIDE RECORDS SUMMARY | 2025-08-16 13:04 | XMS_ITS | Encounter Summary ---
Author Organization [facility] [place] [address] Care Team Providers Care Records Management Engineer Name Role Phone Irvin Redding MD Primary Care Provider [phone] Encounter Details Date Type Department Care Team (Late st Contact Info) Description 03/22/2025 Lab Requisition [facility] - Main Lab [address] [facility] [place] [phone] Geovany Jung MD [address] [facility] [address] [place] [phone] Malignant neoplasm of posterior wall of bladder (CMS/HCC V24, CMS/HCC V28) Social History Tobacco Use Types Packs/Day Years [...] Associated Diagnosis Comments AP OUTSIDE CONSULT Routine 03/19/2025 Malignant neoplasm of posterior wall of bladder (CMS/HCC V24, CMS/HCC V28) documented in this encounter Results * Anatomic pathology outside consult (03/19/2025) Addendum No muscularis propria (Detrusor muscle) present for evaluation. 04/06/2025 2:36 PM EDT [facility] ([facility] Addendum electronically signed by Gentry Henson MD on 04/06/2025 at 2:36 PM Final Diagnosis Urinary Bladder, biopsies: -UROTHELIAL CARCINOMA IN SITU 04/06/2025 2:36 PM EDT [facility] Clinical Information Z85.51 H/O bladder neoplasm (malignant) C67.4 [id number] 04/06/2025 2:36 PM EDT [facility] Gross Description A. Urinary Bladder, biopsies: Labeled Bladder Biopsies . Received in formalin is a 1.5x1.0x0.5cm aggregate of friable, timmons-pink tissue fragments, which are filtered through paper and submitted in toto in one cassette, multiple pieces, multiple levels. /al 04/06/2025 2:36 PM EDT [facility] Disclaimer Unless otherwise specified, all tissue is 10% NB formalin fixed and paraffin embedded. Technical pathology services provided by [facility] [address] [facility] [facility] [address] [place] [address] (CLIA #[id number]/S davion Bruno MD, Retail Helper) 04/06/2025 2:36 PM EDT [facility] Tissue Urinary bladder structure / Unknown 03/19/2025 03/22/2025 3:03 PM EDT Geovany Jung MD LAB PATHOLOGY ORDERABLES Edite d Result - Final [facility] [address] [place] [address], documented in this encounter Visit Diagnoses Diagnosis Malignant neoplasm of posterior wall of bladder (CMS/HCC V24, CMS/HCC V28) Malignant neoplasm of posterior wall of urinary bladder documented in this encounter Care Teams Records Management Engineer Relationship Specialty Start Date End Date Irvin Redding MD [address] [place] [address] PCP - General Taxicab Starter 10/22/19 documented as of this encounter
--- OUTSIDE RECORDS SUMMARY | 2025-08-16 13:04 | XMS_ITS | Encounter Summary ---
Author Organization [facility] Address [address] [place] [address] Care Team Providers Care Fashion Styling Intern Name Role Phone Irvin Redding MD Primary Care Provider [phone] Encounter Details Date Type Department Care Team (Late st Contact Info) Description 07/12/2025 Lab Requisition [facility] - Main Lab [address] [facility] [place] [phone] Kendell Craft MD [address] [facility] [address] [place] [address] Personal history of malignant neoplasm of bladder; Neoplasm of unspecified behavior of bladder Social [...] Procedure Name Priority Date/Time Associated Diagnosis Comments NON-GYNECOLOGIC CYTOLOGY 07/01/2025 12:00 AM EDT Personal history of malignant neoplasm of bladder Neoplasm of unspecified behavior of bladder documented in this encounter Results * Non-gynecologic cytology (07/01/2025 12:00 AM EDT) Final Diagnosis A. Cystoscopic, [id number]: Negative for high grade urothelial carcinoma. Acute inflammatory cells are present. Results of UroVysion fluorescence in situ hybridization (FISH) testing: CEP3: Normal CEP7: Normal CEP17: Normal LSI 9p21: Normal Interpretation: Normal profile Controls stained appropriately. Note: The results are intended as a screening device and should be interpreted in association with other clinical and pathological findings. 07/28/2025 5:02 PM EDT [facility] at 1702 EDT Specimen A Adequacy Satisfactory for evaluation 07/28/2025 5:02 PM EDT [facility] Clinical Information Z85.51 Personal history of malignant neoplasm D49.4 Neoplasm of unspecified behavior... Urine Cytology/FISH (now) 07/28/2025 5:02 PM EDT [facility] Gross Description A. Cystoscopic, [id number]: Received one ThinPrep slide for cytology and one ThinPrep slide for UroVysion FISH 07/28/2025 5:02 PM EDT [facility] Disclaimer Unless otherwise specified, all tissue is 10% NB formalin fixed and paraffin embedded. Technical pathology services provided by [facility] [address] [facility] [address], [place] [address] (CLIA #[id number]/Latonia Bruno MD, Belt Knife Feeder) 07/28/2025 5:02 PM EDT [facility] Urine Cystoscope / Unknown 07/01/2025 07/12/2025 10:48 AM EDT us Kendell Craft MD LAB CYTOLOGY ORDERABLES Fin al Result [facility] [address] [place] [address], documented in this encounter Visit Diagnoses Diagnosis Personal history of malignant neoplasm of bladder Neoplasm of unspecified behavior of bladder documented in this encounter Care Teams Fashion Styling Intern Relationship Specialty Start Date End Date Irvin Redding MD [address] [place] [address] PCP - General Hogshead Press Operator 10/22/19 documented as of this encounter
--- OUTSIDE RECORDS SUMMARY | 2025-08-16 13:04 | XMS_ITS | Clinical Summary ---
Author Organization [facility] Address [address] [place] [address] Care Team Providers Care Agronomy Location Manager Name Role Phone Irvin Redding MD Primary Care Provider [phone] Allergies No known active allergies Medications Medication Sig Dispensed Refills Start Date End Date Status SUBOXONE 2-0.[address] 1 FILM EVERY DAY SUBLINGUALLY 0 10/17/2020 Active buPROPion (WELLBUTRIN XL) 150 MG 24 hr tablet Take 150 mg by mouth daily. 0 10/20/2020 Active clonazePAM (KlonoPIN) 0.5 MG tablet TAKE 1/2 TABLET BY MOUTH IN THE MORNING AND 1 TABLET BY MOUTH AT BEDTIME DIRECTED 0 09/30/2020 Active traZODone (DESYREL) 50 MG tablet Take 50 mg by mouth every night at bedtime. 0 09/18/2020 Active Diclofenac Sodium 1 % GEL APPLY 2 GM TOPICALLY 4 TIMES A DAY 0 04/26/2021 Active gabapentin (NEURONTIN) 300 MG capsule TAKE 1 CAPSULE AT BEDTIME X3 DAYS THEN 2 CAPS AT BEDTIME X3 DAYS THEN 3 CAPS AT BEDTIME 0 11/14/2020 Active Buprenorphine ER 100 MG/0.5ML SOSY Inject 100 mg under the skin. 0 07/21/2021 Active EPINEPHrine (EpiPen 2-Charles) 0.3 MG/0.3ML SOAJ Inject 0.3 mg into the muscle. 0 08/13/2021 Active AndroGel Pump 20.25 MG/ACT (1.62%) gel APPLY 3 PUMPS TO ONE SHOULDER AND 2 PUMPS TO THE OTHER SHOULDER ONCE A DAY 0 12/01/2021 Active acetaminophen (TYLENOL EXTRA STRENGTH) 500 MG tablet Take 2 tablets (1,000 mg total) by mouth 3 (three) times a day. 0 07/28/2022 Active celecoxib (CeleBREX) 200 MG capsule Take 1 capsule (200 mg total) by mouth daily. 0 07/28/2022 Active amoxicillin (AMOXIL) 500 MG tablet Take 4 tabs 1 hour prior to dental appointment 20 tablet 3 08/10/2022 Active Active Problems Problem Noted Date Diagnosed Date Postop check 08/30/2022 Greater trochanteric bursitis of right hip 10/25 Family History Medical History Relation Name Comments Cancer Father Relation Name Status Comments Father Social History Tobacco Use Types Packs/Day Years Used Date Smoking Tobacco: Never Assessed Sex and Gender Information Value Date Recorded Sex Assigned at Not on file Gender Identity Not on file Sexual Orientation Not on file Job Start Date Occupation Industry Not on file Not on file Not on file Last Filed Vital Signs [...] Health Maintenance Due Date Last Done Comments Hepatitis C Screening 1958 Depression Screening 1970 BMI Counseling 1976 Preventative Health Evaluation 1976 Colon Cancer Screening (Colonoscopy) 2003 DTap / Tdap / Td (1 - Tdap) 08/08/2018 08/07/2018 Fall Risk Assessment 2023 Pneumococcal Vaccine (1 of 1 - PCV) 2023 COVID-19 Vaccine (4 - season) 2025 09/10/2021, 02/10/2021, 01/19/2021 Influenza Vaccine (#1) 2025 , 06/28/2020, 07/26/2019, Additional history exists RSV Adult > 60+ Yrs or (1 - 1-dose 75+ series) 2033 Shingrix-Zoster Vaccine Completed 05/08/2019, 01/10 Hepatitis B Vaccines Aged Out No long er eligible based on patient's age to complete this topic RSV Ped < 20 months Aged Out No longe r eligible based on patient's age to complete this topic Care Teams Agronomy Location Manager Relationship Specialty Start Date End Date Irvin Redding MD [address] [address] PCP - General Cloth Doubling Machine Operator 10/22/19
== END 2025-08-16 12:56 | disposition home or self-care (01) ==
LOC: HO.HOS 10:41
PROVIDERS: PCP Internal Medicine; Visit Provider Physician Assistant
DX: M16.12 Unilateral primary osteoarthritis, left hip (principal)
CPT/HCPCS: 99204

== ENCOUNTER → 2025-08-16 10:43 | Outpatient (BNV) | payer BC, MEDICARE, SELFPAY | PROVIDERS: Visit Provider Radiology Diagnostic Radiology | DX: M16.12 Unilateral primary osteoarthritis, left hip (principal) | CPT/HCPCS: 73502 ==

== ENCOUNTER 2025-08-16 13:13 | Outpatient (REF) | payer BC, MEDICARE, SELFPAY ==
--- NOTE | ~2025-08-16 | XR_ITS ---
EXAMINATION: XR HIP, LEFT CLINICAL INFORMATION: M25.552 - Pain in left hip COMPARISON: None available. TECHNIQUE: AP view pelvis. AP and oblique views, of the left hip. FINDINGS: Asymmetric joint space narrowing, sclerosis along the articular surface and subchondral cyst formation in the left coxofemoral joint. No acute fracture or dislocation. Total right hip arthroplasty prosthesis not fully included. Multiple metallic coils The lower pelvis/inguinal region. Spondylosis L4-5 and L5-S1. No lytic or blastic lesions. Soft tissue calcifications overlapping the left gluteal region. XR/XR hip LT min 2V IMPRESSION: Moderate to severe osteoarthrosis/osteoarthritis, left hip. Electronically signed by: Ravinder Mcmahon MD 08/16/2025 10:52 AM [facility]
--- OUTSIDE RECORDS SUMMARY | 2025-08-17 16:09 | XMS_ITS | Clinical Summary ---
Author Organization [facility] Address [address] [place] [address] Care Team Providers Care Nuisance Wildlife Trapper Name Role Phone Stephanie Mendoza SNEHA Primary Care Provider [phone] Source Comments PLEASE NOTE, if this patient [...] L4-L5 Laminectomy ? 02/2011. MRI L spine(03/2011@ [facility]): L4-L5 partial Laminectomy and Rt paracentral [...] Bx neg in 12/2010 . Follows at [facility] urology once A yr for PSA and [...] on file Insurance [employer] Care Teams Nuisance Wildlife Trapper Relationship Specialty Start Date End Date Stephanie Mendoza FNP [address] [place] [address] PCP - General 12/09/18
--- OUTSIDE RECORDS SUMMARY | 2025-08-17 16:10 | XMS_ITS | Encounter Summary ---
Author Organization [facility] Address [address] [place] [address] Care Team Providers Care Smoking Tobacco Packing Machine Hand Name Role Phone Irvin Redding MD Primary Care Provider [phone] Encounter Details Date Type Department Care Team (Late st Contact Info) Description 02/15/2025 Lab Requisition [facility] - Main Lab [address] [facility] [place] [phone] Kendell Craft MD [address] [facility] [address] [place] [address] Elevated prostate specific antigen (PSA) Social History [...] (02/12/2025) Final Diagnosis A. Prostate, Left [place] Biopsy: -BENIGN PROSTATE TISSUE B. Prostate, Left Lateral [place] Biopsy: -BENIGN PROSTATE TISSUE C. Prostate, Left [place] Biopsy: -BENIGN PROSTATE TISSUE D. Prostate, Left Lateral [place] Biopsy: -BENIGN PROSTATE TISSUE E. Prostate, Left [place] Biopsy: -BENIGN PROSTATE TISSUE F. Prostate, Left Lateral [place] Biopsy: -BENIGN PROSTATE TISSUE G. Prostate, Right [place] Biopsy: -BENIGN PROSTATE TISSUE H. Prostate, Right Lateral [place] Biopsy: -BENIGN PROSTATE TISSUE I. Prostate, Right [...] situ: Not identified 02/16/2025 3:33 PM EDT [facility] Clinical Information Elevated PSA R97.20 PSA: 4.9 (02/12/25) [id number] 02/16/2025 3:33 PM EDT [facility] Gross Description A. Prostate, Left [place] Biopsy: Received, properly labeled, are two H and E stained slides and two unstained slides. B. Prostate, Left Lateral [place] Biopsy: Received, properly labeled, are two H [...] two unstained slides. G. Prostate, Right [place] Biopsy: Received, properly labeled, are two H and E stained slides and two unstained slides. H. Prostate, Right Lateral [place] Biopsy: Received, properly labeled, are two H [...] multiple levels. /al 02/16/2025 3:33 PM EDT [facility] Disclaimer Unless otherwise specified, all tissue is 10% NB formalin fixed and paraffin embedded. Technical pathology services provided by [facility] at [address], [place] [address] (CLIA #[id number] davion Bruno MD, Profiling Machine Setup Operator) 02/16/2025 3:33 PM EDT [facility] Tissue Urinary [...] MD LAB PATHOLOGY ORDERABLES Fi nal Result [facility] ([facility] [address] [place] [address], documented in this encounter Visit Diagnoses Diagnosis Elevated prostate specific antigen (PSA) documented in this encounter Care Teams Smoking Tobacco Packing Machine Hand Relationship Specialty Start Date End Date Irvin Redding MD [address] [place] [address] PCP - General Chief Informatics Officer 10/22/19 documented as of this encounter
--- OUTSIDE RECORDS SUMMARY | 2025-08-17 16:10 | XMS_ITS | Clinical Summary ---
Author Organization [facility] Address [address] [place] [address] Care Team Providers Care Clinical Coder Name Role Phone Irvin Redding MD Primary Care Provider [phone] Allergies No known active allergies Medications buPROPion [...] you are drinking? Patient does not drink 3 Q3: How often do you have si [...] topic Insurance MEDICARE PART A & B [place] [id number] Care Teams Clinical Coder Relationship Specialty Start Date End Date Irvin Redding MD [address] [place] [id number] PCP - General 04/23/23
--- OUTSIDE RECORDS SUMMARY | 2025-08-17 16:10 | XMS_ITS | Clinical Summary ---
Author Organization 299 [facility] Address [address] [place] [address] Phone Care Team Providers Care Vertica Architect Name Role Phone Irvin Redding MD Primary Care Provider [phone] Encounters Date Type Department Care Team Description 07/12/2025 Lab Requisition [facility] [address] [place] [phone] Kendell Craft MD Personal history of malignant neoplasm of bladder; Neoplasm of unspecified behavior of bladder 07/06/2025 Lab Requisition [facility] [address] [place] [address] Kendell Craft MD Neoplasm of [...] EXTENSIVELY (>90%) DENUDED 07/07/2025 9:10 AM EDT [facility] Comment While no neoplasm is observed in this specimen, denudation may sometimes reflect cases of CIS where the neoplastic cells have shed as a result of discohesion. Additional tissue and/or cytology sampling may be helpful, if clinically indicated. 07/07/2025 9:10 AM EDT [facility] Clinical Information Z85.51 - H/O Bladder neoplasm (malignant) D49.4 [id number] 07/07/2025 9:10 AM EDT [facility] Gross Description A. Urinary Bladder, Tumor: Labeled Bladder tumor . Received in formalin are four soft, timmons-red tissue fragments, measuring 0.6 x 0.4 x 0.3 cm in greatest diameters, which are wrapped in paper and submitted in toto in one cassette, 4 pieces, multiple levels. /al 07/07/2025 9:10 AM EDT [facility] Disclaimer Unless otherwise specified, all tissue is 10% NB formalin fixed and paraffin embedded. Technical pathology services provided by [facility] at [address] [place] [address] [address], [place] [address] (CLIA #[id number]/Sa penny Bruno MD, Knife Finisher) 07/07/2025 9:10 AM EDT [facility] Tissue Urinary bladder structure / Unknown 07/02/2025 07/06/2025 12:27 PM EDT us Kendell Craft MD LAB PATHOLOGY ORDERABLES Fi nal Result [facility] [address] [place] [address], * Non-gynecologic cytology (07/01/2025 12:00 AM EDT) Final Diagnosis A. Cystoscopic, [id number]: Negative for high grade urothelial carcinoma. Acute inflammatory cells are present. Results of UroVysion fluorescence in situ hybridization (FISH) testing: CEP3: Normal CEP7: Normal CEP17: Normal LSI 9p21: Normal Interpretation: Normal profile Controls stained appropriately. Note: The results are intended as a screening device and should be interpreted in association with other clinical and pathological findings. 07/28/2025 5:02 PM EDT [facility] at 1702 EDT Specimen A Adequacy Satisfactory for evaluation 07/28/2025 5:02 PM EDT [facility] Clinical Information Z85.51 Personal history of malignant neoplasm D49.4 Neoplasm of unspecified behavior... Urine Cytology/FISH (now) 07/28/2025 5:02 PM EDT [facility] Gross Description A. Cystoscopic, [id number]: Received one ThinPrep slide for cytology and one ThinPrep slide for UroVysion FISH 07/28/2025 5:02 PM EDT [facility] Disclaimer Unless otherwise specified, all tissue is 10% NB formalin fixed and paraffin embedded. Technical pathology services provided by [facility] at [address], [place] [address] (CLIA #[id number]/Latonia Bruno MD, Knife Finisher) 07/28/2025 5:02 PM EDT [facility] Urine Cystoscope / Unknown 07/01/2025 07/12/2025 10:48 AM EDT us Kendell Craft MD LAB CYTOLOGY ORDERABLES Fin al Result [facility] [address] [place] [address], from Last 3 Months Insurance MEDICARE [facility] ([facility]) [facility] MAIL ADMIN [address] ([facility]) Advance Directives Documents on File Type Date Recorded Patient Cnc Machine Programmer Expl anation Health Care Decision (hx) 07/27/2022 AD SHIN DIRECTIVE Health Care Decision (hx) 07/27/2022 AD SHIN DIRECTIVE Health Care Decision (hx) 07/27/2022 AD SHIN DIRECTIVE Care Teams Vertica Architect Relationship Specialty Start Date End Date Irvin Redding MD [address] [place] [phone] PCP - General Banjo Repairer 10/22/19
--- OUTSIDE RECORDS SUMMARY | 2025-08-17 16:10 | XMS_ITS | Encounter Summary ---
[facility] Address [address] [place] [address] Care Team Providers Care Triage Registered Nurse Name Role Phone Irvin Redding MD Primary Care Provider [phone] Encounter Details Date Type Department Care Team (Late st Contact Info) Description 07/06/2025 Lab Requisition [facility] - Main Lab [address] [facility] [place] [phone] Kendell Craft MD [address] [facility] [address] [place] [address] Neoplasm of unspecified behavior of bladder; Personal [...] EXTENSIVELY (>90%) DENUDED 07/07/2025 9:10 AM EDT [facility] Comment While no neoplasm is observed in this specimen, denudation may sometimes reflect cases of CIS where the neoplastic cells have shed as a result of discohesion. Additional tissue and/or cytology sampling may be helpful, if clinically indicated. 07/07/2025 9:10 AM EDT [facility] Clinical Information Z85.51 - H/O Bladder neoplasm (malignant) D49.4 [id number] 07/07/2025 9:10 AM EDT [facility] Gross Description A. Urinary Bladder, Tumor: Labeled Bladder tumor . Received in formalin are four soft, timmons-red tissue fragments, measuring 0.6 x 0.4 x 0.3 cm in greatest diameters, which are wrapped in paper and submitted in toto in one cassette, 4 pieces, multiple levels. /al 07/07/2025 9:10 AM EDT [facility] Disclaimer Unless otherwise specified, all tissue is 10% NB formalin fixed and paraffin embedded. Technical pathology services provided by [facility] [address] [facility] [address], [place] [address] (CLIA #[id number]/Sa penny Bruno MD, Scale Model Maker) 07/07/2025 9:10 AM EDT [facility] Tissue Urinary bladder structure / Unknown 07/02/2025 07/06/2025 12:27 PM EDT us Kendell Craft MD LAB PATHOLOGY ORDERABLES Fi nal Result [facility] [address] [place] [address], documented in this encounter Visit Diagnoses Diagnosis Neoplasm of unspecified behavior of bladder Personal history of malignant neoplasm of bladder documented in this encounter Care Teams Triage Registered Nurse Relationship Specialty Start Date End Date Irvin Redding MD [address] [place] [address] PCP - General Hand Etcher Helper 10/22/19 documented as of this encounter
--- OUTSIDE RECORDS SUMMARY | 2025-08-17 16:10 | XMS_ITS | Encounter Summary ---
Author Organization [facility] Address [address] [place] [address] Care Team Providers Care Auto Garage Attendant Name Role Phone Irvin Redding MD Primary Care Provider [phone] Encounter Details Date Type Department Care Team (Late st Contact Info) Description 02/17/2025 Lab Requisition [facility] - Main Lab [address] [facility] [place] [phone] Kendell Craft MD [address] [place] [address] Elevated prostate specific antigen (PSA); Neoplasm of [...] AM EDT) Final Diagnosis A. Urine, Cystoscopic, ([id number]): HIGH GRADE UROTHELIAL CARCINOMA Results of UroVysion fluorescence in situ hybridization (FISH) testing: CEP3: Abnormal CEP7: Abnormal CEP17: Abnormal LSI 9p21: Normal Interpretation: Abnormal profile Controls stained appropriately. Note: Abnormal results are considered suspicious for urothelial carcinoma. 03/03/2025 5:02 PM EDT [facility] Clinical Information Neoplasm of uncertain behavior unspecified D48.9 Elevated prostate-specifi c antigen (PSA) R97.20 Urine Cytology/FISH (now) 03/03/2025 5:02 PM EDT [facility] Gross Description A. Cystoscopic, ([id number]): Received one ThinPrep slide for cytology and one ThinPrep slide for UroVysion FISH 03/03/2025 5:02 PM EDT [facility] Disclaimer Unless otherwise specified, all tissue is 10% NB formalin fixed and paraffin embedded. Technical pathology services provided by [facility] at [address] [place] [address] [address] [address] (CLIA #[id number]/Latonia Bruno MD, Block Saw Operator) 03/03/2025 5:02 PM EDT [facility] Tissue Cystoscope / Unknown 02/12/2025 02/17/2025 2:18 PM EDT us Kendell Craft MD LAB PATHOLOGY ORDERABLES Fi nal Result [facility] [address] [place] [address], documented in this encounter Visit Diagnoses Diagnosis Elevated prostate specific antigen (PSA) Neoplasm of uncertain behavior, unspecified documented in this encounter Care Teams Auto Garage Attendant Relationship Specialty Start Date End Date Irvin Redding MD [address] [place] [address] PCP - General Functional Mental Disability Teacher 10/22/19 documented as of this encounter
--- OUTSIDE RECORDS SUMMARY | 2025-08-17 16:10 | XMS_ITS | Encounter Summary ---
Author Organization [facility] Address [address] [place] [address] Care Team Providers Care Three Knife Trimmer Name Role Phone Irvin Redding MD Primary Care Provider [phone] Encounter Details Date Type Department Care Team (Late st Contact Info) Description 07/12/2025 Lab Requisition [facility] - Main Lab [address] [facility] [place] [phone] Kendell Craft MD [address] [facility] [address] [place] [address] Personal history of malignant neoplasm of bladder; [...] 12:00 AM EDT) Final Diagnosis A. Cystoscopic, [id number]: Negative for high grade urothelial carcinoma. Acute inflammatory cells are present. Results of UroVysion fluorescence in situ hybridization (FISH) testing: CEP3: Normal CEP7: Normal CEP17: Normal LSI 9p21: Normal Interpretation: Normal profile Controls stained appropriately. Note: The results are intended as a screening device and should be interpreted in association with other clinical and pathological findings. 07/28/2025 5:02 PM EDT [facility] at 1702 EDT Specimen A Adequacy Satisfactory for evaluation 07/28/2025 5:02 PM EDT [facility] Clinical Information Z85.51 Personal history of malignant neoplasm D49.4 Neoplasm of unspecified behavior... Urine Cytology/FISH (now) 07/28/2025 5:02 PM EDT [facility] Gross Description A. Cystoscopic, [id number]: Received one ThinPrep slide for cytology and one ThinPrep slide for UroVysion FISH 07/28/2025 5:02 PM EDT [facility] Disclaimer Unless otherwise specified, all tissue is 10% NB formalin fixed and paraffin embedded. Technical pathology services provided by [facility] [address] [facility] [address] [address] (CLIA #[id number]/Latonia Bruno MD, Botany Laboratory Assistant) 07/28/2025 5:02 PM EDT [facility] Urine Cystoscope / Unknown 07/01/2025 07/12/2025 10:48 AM EDT us Kendell Craft MD LAB CYTOLOGY ORDERABLES Fin al Result [facility] [address] [place] [address], documented in this encounter Visit Diagnoses Diagnosis Personal history of malignant neoplasm of bladder Neoplasm of unspecified behavior of bladder documented in this encounter Care Teams Three Knife Trimmer Relationship Specialty Start Date End Date Irvin Redding MD [address] [place] [address] PCP - General Grinding Machine Operator Portable 10/22/19 documented as of this encounter
--- OUTSIDE RECORDS SUMMARY | 2025-08-17 16:10 | XMS_ITS | Encounter Summary ---
[facility] [place] [address] Care Team Providers Care Buffing Turner And Counter Name Role Phone Irvin Redding MD Primary Care Provider [phone] Encounter Details Date Type Department Care Team (Late st Contact Info) Description 03/22/2025 Lab Requisition [facility] - Main Lab [address] [facility] [place] [phone] Geovany Jung MD [address] [facility] [address] [place] [phone] Malignant neoplasm of posterior wall of bladder [...] present for evaluation. 04/06/2025 2:36 PM EDT [facility] Addendum electronically signed by Gentry Henson MD on 04/06/2025 at 2:36 PM Final Diagnosis Urinary Bladder, biopsies: -UROTHELIAL CARCINOMA IN SITU 04/06/2025 2:36 PM EDT [facility] Clinical Information Z85.51 H/O bladder neoplasm (malignant) C67.4 [id number] 04/06/2025 2:36 PM EDT [facility] Gross Description A. Urinary Bladder, biopsies: Labeled Bladder Biopsies . Received in formalin is a 1.5x1.0x0.5cm aggregate of friable, timmons-pink tissue fragments, which are filtered through paper and submitted in toto in one cassette, multiple pieces, multiple levels. /al 04/06/2025 2:36 PM EDT [facility] Disclaimer Unless otherwise specified, all tissue is 10% NB formalin fixed and paraffin embedded. Technical pathology services provided by [facility] [address] [facility] [address] [place] [address] (CLIA #[id number]/S davion Bruno MD, Career Consultant) 04/06/2025 2:36 PM EDT [facility] Tissue Urinary bladder structure / Unknown 03/19/2025 03/22/2025 3:03 PM EDT Geovany Jung MD LAB PATHOLOGY ORDERABLES Edite d Result - Final [facility] [address] [place] [address], documented in this encounter Visit Diagnoses Diagnosis Malignant neoplasm of posterior wall of bladder (CMS/HCC V24, CMS/HCC V28) Malignant neoplasm of posterior wall of urinary bladder documented in this encounter Care Teams Buffing Turner And Counter Relationship Specialty Start Date End Date Irvin Redding MD [address] [place] [address] PCP - General Filler And Trimmer 10/22/19 documented as of this encounter
--- OUTSIDE RECORDS SUMMARY | 2025-08-17 16:10 | XMS_ITS | Encounter Summary ---
Author Organization [facility] Address [address] [place] [address] Care Team Providers Care Web Designer Developer Name Role Phone Irvin Redding MD Primary Care Provider [phone] Encounter Details Date Type Department Care Team (Late st Contact Info) Description 02/19/2025 Lab Requisition [facility] - Main Lab [address] [facility] [place] [address] Geovany Jung MD [address] [facility] [address] [place] [phone] Neoplasm of unspecified behavior of bladder Social [...] situ: Not identified 02/24/2025 2:12 PM EDT [facility] Clinical Information Z85.51 - H/O bladder neoplasm (malignant) [id number] 02/24/2025 2:12 PM EDT [facility] [...] embedded. Technical pathology services provided by [facility] at [address] [place] [address] [address] [address] (CLIA #[id number]/S davion Bruno MD, Corporation Officer) 02/24/2025 2:12 PM EDT [facility] Tissue Urinary bladder structure / Unknown 02/18/2025 02/19/2025 3:49 PM EDT Geovany Jung MD LAB PATHOLOGY ORDERABLES Final Result [facility] [address] [place] [address], documented in this encounter Visit Diagnoses Diagnosis Neoplasm of unspecified behavior of bladder documented in this encounter Care Teams Web Designer Developer Relationship Specialty Start Date End Date Irvin Redding MD [address] [place] [address] PCP - General Pick Up Man 10/22/19 documented as of this encounter
--- OUTSIDE RECORDS SUMMARY | 2025-08-17 16:10 | XMS_ITS | Clinical Summary ---
Author Organization [facility] Address [address] [place] [address] Care Team Providers Care Executive Manager Name Role Phone Irvin Redding MD Primary Care Provider [phone] Allergies No known active allergies Medications Medication [...] age to complete this topic Care Teams Executive Manager Relationship Specialty Start Date End Date Irvin Redding MD [address] [address] PCP - General Molding Technician 10/22/19
== END 2025-08-16 13:14 | disposition home or self-care (01) ==
LOC: HO.HOSX 13:13
PROVIDERS: Visit Provider Physician Assistant
DX: M16.12 Unilateral primary osteoarthritis, left hip (principal)
CPT/HCPCS: 73502

== ENCOUNTER 2025-08-19 11:01 | Outpatient (AMB) | payer BC, MEDICARE, SELFPAY ==
--- OUTSIDE RECORDS SUMMARY | 2025-08-18 23:59 | XMS_ITS | Continuity of Care Document ---
Author Organization [facility] Address [address] [place] [address]- Care Team Providers Care Safety And Skill Based Pay Manager Name Role Phone Irvin Redding MD Primary Care Physician Encounter [facility] ACCT R [id number] Date(s): 07/19/25 - 08/18/25 [facility] [address] [place], [place] [address] Attending Physician: Italo Morris Admitting Physician: Italo Morris Referring Physician: Italo Morris Referring Physician: Esme Dale MA Encounter Type: Triage Allergies, Adverse Reactions, Alerts No Known Allergies Immunizations Given and Recorded Vaccine Date Status Refusal Reason influenza virus vaccine, inactivated 07/21/24 Petey rded influenza virus vaccine, inactivated 07/21/23 Petey rded influenza virus vaccine, inactivated 09/01/22 Eptey rded influenza virus vaccine, inactivated 08/05/21 Petey rded influenza virus vaccine, inactivated 06/28/20 Petey rded influenza virus vaccine, inactivated 07/26/19 Petey rded influenza virus vaccine, inactivated 1 08/07/18 Gi nina influenza virus vaccine, inactivated 10/04/15 Give n [id number] 12y+ bivalent booster vax 09/16/22 Recorded SARS-CoV-2 (COVID-19) mRNA BNT-162b2 vac 09/10/21 Recorded SARS-CoV-2 (COVID-19) mRNA BNT-162b2 vac 02/10/21 Recorded SARS-CoV-2 (COVID-19) mRNA BNT-162b2 vac 01/19/21 Recorded zoster vaccine, inactivated 2 05/08/19 Recorded zoster vaccine, inactivated 3 01/10/19 Recorded tetanus-diphtheria toxoids (Td) 4 08/07/18 Given 1Result Comment: [08/07/2018] given w/out incident [facility]: [id number] 2Result Comment: edinson 3Result Comment: edinson 4Result Comment: [08/07/2018] given w/out incident Medications Albuterol (Eqv-Proventil HFA) 90 mcg/inh inhalation aerosol 1 inhalation, Inhalation, Every 6 hours, PRN NEEDED FOR SHORTNESS OF BREATH OR WHEEZING, # 6.7 Gm, 3 Refills, Maintenance, 01/21/25 7:10:00 AM EDT, [id number], 184.1, cm, 12/03/24 15:00:00 EST, Height, 88.2, kg, 12/03/24 15:00:00 EST, Dry Weight Start Date: 01/21/25 Status: Ordered Medication Dispense Status: Completed Quantity: 6.7 Unit: g Total Allowed Fills: 1 Fills Dispensed: 0 clonazePAM 0.5 mg oral tablet 1 tablet = 0.5 mg, By Mouth, 2 times a day, PRN agitatation, 0 Refills, Maintenance, 12/04/18 1:52:47 PM EST, Tablet Start Date: 12/04/18 Status: Ordered Medication Dispense Status: Completed Total Allowed Fills: 1 Fills Dispensed: 0 diclofenac sodium 75 mg oral delayed release tablet 1 tablet, By Mouth, 2 times a day with meals, PRN as needed for arthritis, # 60 tablet, 1 Refills, Maintenance, 07/01/25 3:18:00 PM EDT, [facility] #[id number], 184.1, cm, 03/15/25 8:06:00 EDT, Height, 87.8, kg, 03/15/25 8:06:00 EDT, Dry Weight Start Date: 07/01/25 Stop Date: 08/30/25 Status: Ordered Medication Dispense Status: Completed Quantity: 60.0 Unit: tablet Total Allowed Fills: 2 Fills Dispensed: 0 docusate sodium 100 mg oral tablet 3 tablet = 300 mg, By Mouth, 2 times a day, PRN for constipation, # 100 tablet, 0 Refills, Maintenance, 07/14/20 2:11:00 PM EDT, Tablet Start Date: 07/14/20 Stop Date: 08/13/20 Status: Ordered Medication Dispense Status: Completed Quantity: 100.0 Unit: tablet Total Allowed Fills: 1 Fills Dispensed: 0 MiraLax oral powder for reconstitution = 17 Gm, By Mouth, Daily, dissolve in 4 to 8 oz of beverage, # 527 Gm, 0 Refills, Maintenance, 03/10/24 8:19:00 AM EDT, REC Powder, Partial fill upon patient request if the prescription is for a schedule II opioid drug. Start Date: 03/10/24 Status: Ordered Medication Dispense Status: Completed Quantity: 527.0 Unit: g Total Allowed Fills: 1 Fills Dispensed: 0 Wellbutrin SR 150 mg/12 hours oral tablet, extended release 1 tablet = 150 mg, By Mouth, Daily in AM, 0 Refills, Maintenance, 10/16/15 8:23:38 AM EST Start Date: 10/16/15 Stop Date: 12/26/17 Status: Ordered Medication Dispense Status: Completed Total Allowed Fills: 1 Fills Dispensed: 0 Problem List Condition Confirmation Course Effective Dates Status H ealth Status Informant Family history of colon cancer (dad) Confirmed Active Greater trochanteric pain syndrome Confirmed 10/25/20 Active History of replacement of both shoulder joints 1 Confirmed Active S/P bilateral inguinal hernia repair Confirmed 01/30/24 Active History of total right hip arthroplasty Confirmed 2010 Active History of total right knee replacement (TKR) Confirmed 07/27/22 Active Hypogonadism in male Confirmed Active Depression, major, single episode, mild Confirmed Active chewing nicotine gum Confirmed Active Osteoarthritis Confirmed Active Localized osteoarthritis of left hand Confirmed Active Primary papillary carcinoma of bladder Confirmed 02/18/25 Active H/o Elevated PSA - followed by [facility] Confirmed Active Raynaud's syndrome 2 Confirmed Active Sciatica Confirmed Active and 2012 2Per rheumatology note Implantable Device List Procedure Provider Procedure Date Device Type Site Repair Hernia Umbilical Laparoscopic Alvaro Hernandez MD 01/30/24 Unknown Umbilicus Device Identifier Serial Number Lot or Batch Number Manufacturing Date Expiration Date Distinct Identification Code MRI Safety Implantable Status Assigning Authority Unknown Unknown [id number] Unknown 08/10/25 Unknown Unknown Active Unknown Unknown Unknown [id number] Unknown 08/10/25 Unknown Unknown Active Unknown Procedure Provider Procedure Date Device Type Site Repair Hernia Inguinal Laparoscopic Hussein Hernandez MD, Alvaro 01/30/24 Unknown Groin Bilatera l Device Identifier Serial Number Lot or Batch Number Manufacturing Date Expiration Date Distinct Identification Code MRI Safety Implantable Status Assigning Authority Unknown Unknown [id number] Unknown 06/10/25 Unknown Unknown Active Unknown Procedure Provider Procedure Date Device Type Site Repair Hernia Inguinal Laparoscopic Hussein Hernandez MD, Alvaro 01/30/24 Unknown Groin Left Device Identifier Serial Number Lot or Batch Number Manufacturing Date Expiration Date Distinct Identification Code MRI Safety Implantable Status Assigning Authority Unknown Unknown [id number] Unknown 04/10/25 Unknown Unknown Active Unknown Procedure Provider Procedure Date Device Type Site Repair Hernia Inguinal Laparoscopic Hussein Hernandez MD, Alvaro 01/30/24 Unknown Groin Right Device Identifier Serial Number Lot or Batch Number Manufacturing Date Expiration Date Distinct Identification Code MRI Safety Implantable Status Assigning Authority Unknown Unknown [id number] Unknown 03/10/25 Unknown Unknown Active Unknown EKG study * Event Display: EKG Authored Date: Laboratory * Event Display: Non BH Lab Results Authored Date: * Event Display: Laboratory Result Scanned Authored Date: * Event Display: Laboratory Result Scanned Authored Date: * Event Display: Non BH Lab Results Authored Date: Imaging * Event Display: X-Ray Knee, Non- BH Authored Date: * Event Display: MRI Hip/Groin, Non- BH Authored Date: * Event Display: IR Special Procedures, Non-BH Authored Date: * Event Display: IR Special Procedures Authored Date: Patient Care team information Care Team Personnel Name: Myra Echevarria RN Position: [facility] RN Member Role: Primary Care Nurse Name: Irvin Redding MD Position: [facility] Physician - Primary Care Member Role: PCP Address: [address] [place] [address] [facility] [address] Telecom: Name: Roger YEUNG, Ade Reddy Position: [facility] RN Member Role: Primary Care Nurse Care Team Related Persons Name: RON MCARTHUR Name: CECILE RODRIGUEZ Insurance Providers Guarantor name: SEBASTIAN RODRIGUEZ [facility] Plan Information #: 1 Payer: [employer] [facility] Payer Identifier: NA Member Number: [id number] Group Number: [id number] Subscriber Identifier: NA Relationship to Subscriber: self Coverage Type: NA Coverage Verification Date: NA Telecom: Address: NA
[2025-08-19 11:04] VITALS: BMI 25.9
--- NOTE | 2025-08-19 11:04 | A.OFFVIS_ITS ---
Vital Signs 08/19/25 11:04 Height 6 ft 1 in Weight 196 lb BMI 25.9 Intake Visit Reasons: Discuss Left LATRICIA per TM Intake Note: Kendell is a 65 year old male who presents today for a follow up of his Left Hip OA. He was last seen with Yessy Cheney who referred him to discuss Left LATRICIA. History of Cortisone injections with [facility] Allergies No Known Allergies Allergy (Verified 08/19/25 11:06) HPI HPI Discuss Left LATRICIA per TM: Details: Kendell is a 65 year old male who presents today as a new patient with complaints of left hip pain. Patient reports ongoing pain, he was seen at [facility] and was receiving mulitple cortisone injectios which are no longer helpful. He has done PT. He uses diclofenac cream. He had a right LATRICIA at [facility] about 14 years ago. He continues to try home exercises but he complains of difficulty with stair use and walking his dog.He can no longer get through his day without pain and is unable to walk even short distances comfortably. He states that he is currently undergoing treatment with urology and should be cleared in September to proceed with a replacement. [facility] Medical History (Updated 08/30/25 @ 12:22 by Margaux Montgomery RN) Anxiety RSV (acute bronchiolitis due to respiratory syncytial virus) COVID-19 Bladder cancer Hx of substance abuse History of alcohol abuse Hypogonadism in male Osteoarthritis Sciatica Raynauds syndrome Elevated PSA Depression ACL tear Aftercare following bilateral shoulder joint replacement surgery Surgical History (Updated 08/30/25 @ 12:34 by Margaux Montgomery RN) History of esophagogastroduodenoscopy (EGD) History of total right knee replacement (~2021) History of repair of ACL Hx of blepharoplasty Hx of laminectomy History of right hip replacement (~2010) H/O colonoscopy S/P bilateral inguinal hernia repair History of transurethral resection of ureterocele Hx of shoulder replacement (~2013) Social History (Updated 08/16/25 @ 10:58 by CRISTINE Tavares) Are you a primary career placement specialist to a significant other at home: No Do you presently have visiting nurse or other home services: No Patient Tobacco Use Status: Never used Tobacco Current occupational status: employed Current occupation: Contractor Physical Exam Vital Signs: BMI result Body Mass Index 25.9 Const General: cooperative, healthy appearing, no acute distress, well developed and alert HEENT Head: Yes normal to inspection, Yes normocephalic and Yes atraumatic Mouth: moist mucous membranes Eyes General: appearance normal, both eyes and all related structures EOM: EOMs intact bilaterally Chest Other: no audible wheezing. Resp Other: No audible wheezing Effort & Inspection: normal respiratory effort Cardio Other: Radial pulse palpable with no rythmic abnormalities Back/Spine/Pelvis Cervical Spine: normal cervical lordosis Skin General skin exam: no rashes or lesions noted Neuro General: no focal motor deficits Extrem Other: Palmer walks with a Trendelenburg gait. He has a + Impingement and [place]field on the left. 2+ DP and firing ehl/ta/gc. Skin is c/d/i LLE. Psych Appearance: grossly normal and well kempt Mental Status: mental status grossly normal Speech and movement: Normal speech and movement present Affect: normal affect Attitude: cooperative Results Reviewed Results Reviewed: I personally reviewed relevant radiographs. Right LATRICIA in expected post operative position with no hardware complications or evidence of loosening Left hip with severe OA Assessment & Plan Assessment & Plan (1) Osteoarthritis of left hip: Code(s): M16.12 - Unilateral primary osteoarthritis, left hip Category: Medical Plan: This is a 65 yo M with severe right hip OA. His radiographs demonstrate severe disease with loss of joint space and he has a right LATRICIA present in satisfactory alignment. His quality of life is poor and he has pain with daily activities. Her symptoms have not improved with conservative treatment and this has been ongoing for years. He has a remote history of substance abuse and has been in remission for years. . I recommend left LATRICIA. I discussed the risks benefits and alternatives including but not limited to the risk of pain, infection, stiffness, leg length discrepancy, dislocation, nerve injury and need for further surgery as well as potential medical complications such as blood clots, pulmonary embolism and cardiac complications. He understands these risks and that all risks cannot be fully identified and that there are inherent risks associated with surgery. I answered his questions to the best of my abilities and we will proceed forward with pre operative clearance. Coding Level of Care Code Est Pt Level 4 (72857) Diagnoses Osteoarthritis of left hip M16.12
--- OUTSIDE RECORDS SUMMARY | 2025-08-19 13:28 | XMS_ITS | Encounter Summary ---
Author Organization [facility] Address [address] [place] [address] Care Team Providers Care Tubing Machine Operator Name Role Phone Irvin Redding MD Primary Care Provider [phone] Encounter Details Date Type Department Care Team (Late st Contact Info) Description 03/22/2025 Lab Requisition [facility] - Main Lab [address] [facility] [place] [phone] Geovany Jung MD [address] [facility] [address] [place] [phone] Malignant neoplasm of posterior wall of bladder [...] present for evaluation. 04/06/2025 2:36 PM EDT [facility] Addendum electronically signed by Gentry Henson MD on 04/06/2025 at 2:36 PM Final Diagnosis Urinary Bladder, biopsies: -UROTHELIAL CARCINOMA IN SITU 04/06/2025 2:36 PM EDT [facility] Clinical Information Z85.51 H/O bladder neoplasm (malignant) C67.4 [id number] 04/06/2025 2:36 PM EDT [facility] Gross Description A. Urinary Bladder, biopsies: Labeled Bladder Biopsies . Received in formalin is a 1.5x1.0x0.5cm aggregate of friable, timmons-pink tissue fragments, which are filtered through paper and submitted in toto in one cassette, multiple pieces, multiple levels. /al 04/06/2025 2:36 PM EDT [facility] Disclaimer Unless otherwise specified, all tissue is 10% NB formalin fixed and paraffin embedded. 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
--- OUTSIDE RECORDS SUMMARY | 2025-08-19 13:28 | XMS_ITS | Clinical Summary ---
Author Organization [facility] Address [address] [place] [address] Care Team Providers Care Beauty Shop Manager Name Role Phone Stephanie Mendoza SNEHA Primary Care Provider [phone] Source Comments PLEASE NOTE, if this patient [...] L4-L5 Laminectomy ? 02/2011. MRI L spine(03/2011@ [facility]): L4-L5 partial Laminectomy and Rt paracentral microdiscectomy [...] Bx neg in 12/2010 . Follows at [facility] urology once A yr for PSA [...] on file Insurance [employer] Care Teams Beauty Shop Manager Relationship Specialty Start Date End Date Stephanie Mendoza FNP [address] [place] [address] PCP - General 12/09/18
--- OUTSIDE RECORDS SUMMARY | 2025-08-19 13:28 | XMS_ITS | Encounter Summary ---
Author Organization [facility] Address [address] [place] [address] Care Team Providers Care Arabic Linguist Name Role Phone Irvin Redding MD Primary Care Provider [phone] Encounter Details Date Type Department Care Team (Late st Contact Info) Description 02/19/2025 Lab Requisition [facility] - Main Lab [address] [facility] [place] [address] Geovany Jung MD [address] [facility] [address] [place] [phone] Neoplasm of unspecified behavior of bladder Social [...] situ: Not identified 02/24/2025 2:12 PM EDT [facility] Clinical Information Z85.51 - H/O bladder neoplasm (malignant) [id number] 02/24/2025 2:12 PM EDT [facility] Gross Description A. Urinary Bladder, Tumor: Labeled bladder tumor . Received in formalin is a 1.1 x 0.7 x 0.4 cm aggregate of friable, pink-timmons tissue fragments. The specimen is wrapped in paper and submitted in toto in 2 cassettes, multiple pieces each. /al 02/24/2025 2:12 PM EDT [facility] Disclaimer Unless otherwise specified, all tissue is 10% NB formalin fixed and paraffin embedded. Technical pathology services provided by [facility] at [address] [place] [address] [address] [address] (CLIA #[id number]/S davion Bruno MD, Imaging Tech) 02/24/2025 2:12 PM EDT [facility] Tissue Urinary bladder structure / Unknown 02/18/2025 02/19/2025 3:49 PM EDT Geovany Jung MD LAB PATHOLOGY ORDERABLES Final Result [facility] [address] [place] [address], documented in this encounter Visit Diagnoses Diagnosis Neoplasm of unspecified behavior of bladder documented in this encounter Care Teams Arabic Linguist Relationship Specialty Start Date End Date Irvin Redding MD [address] [place] [address] PCP - General Mirror Polisher 10/22/19 documented as of this encounter
--- OUTSIDE RECORDS SUMMARY | 2025-08-19 13:28 | XMS_ITS | Encounter Summary ---
Author Organization [facility] Address [address] [place] [address] Care Team Providers Care Lining Mechanic Name Role Phone Irvin Redding MD Primary Care Provider [phone] Encounter Details Date Type Department Care Team (Late st Contact Info) Description 07/12/2025 Lab Requisition [facility] - Main Lab [address] [facility] [place] [phone] Kendell Craft MD [address] [facility] [address] [place] [address] Personal history of malignant neoplasm of bladder; [...] 12:00 AM EDT) Final Diagnosis A. Cystoscopic, [id number]: Negative for high grade urothelial carcinoma. Acute inflammatory cells are present. Results of UroVysion fluorescence in situ hybridization (FISH) testing: CEP3: Normal CEP7: Normal CEP17: Normal LSI 9p21: Normal Interpretation: Normal profile Controls stained appropriately. Note: The results are intended as a screening device and should be interpreted in association with other clinical and pathological findings. 07/28/2025 5:02 PM EDT [facility] at [address] EDT Specimen A Adequacy Satisfactory for evaluation 07/28/2025 5:02 PM EDT [facility] Clinical Information Z85.51 Personal history of malignant neoplasm D49.4 Neoplasm of unspecified behavior... Urine Cytology/FISH (now) 07/28/2025 5:02 PM EDT [facility] Gross Description A. Cystoscopic, [id number]: Received one ThinPrep slide for cytology and one ThinPrep slide for UroVysion FISH 07/28/2025 5:02 PM EDT [facility] Disclaimer Unless otherwise specified, all tissue is 10% NB formalin fixed and paraffin embedded. Technical pathology services provided by [facility] [address] [facility] [address], [place] [address] (CLIA #[id number]/Latonia Bruno MD, Industrial Electrician) 07/28/2025 5:02 PM EDT [facility] Urine Cystoscope / Unknown 07/01/2025 07/12/2025 10:48 AM EDT us Kendell Craft MD LAB CYTOLOGY ORDERABLES Fin al Result [facility] [address] [place] [address], documented in this encounter Visit Diagnoses Diagnosis Personal history of malignant neoplasm of bladder Neoplasm of unspecified behavior of bladder documented in this encounter Care Teams Lining Mechanic Relationship Specialty Start Date End Date Irvin Redding MD [address] [place] [address] PCP - General Electric Meter Repairer 10/22/19 documented as of this encounter
--- OUTSIDE RECORDS SUMMARY | 2025-08-19 13:28 | XMS_ITS | Encounter Summary ---
Author Organization [facility] Address [address] [place] [address] Care Team Providers Care Media Marketing Specialist Name Role Phone Irvin Redding MD Primary Care Provider [phone] Encounter Details Date Type Department Care Team (Late st Contact Info) Description 02/17/2025 Lab Requisition [facility] - Main Lab [address] [facility] [place] [phone] Kendell Craft MD [address] [place] [address] Elevated prostate specific antigen (PSA); Neoplasm of [...] AM EDT) Final Diagnosis A. Urine, Cystoscopic, ([id number]): HIGH GRADE UROTHELIAL CARCINOMA Results of UroVysion fluorescence in situ hybridization (FISH) testing: CEP3: Abnormal CEP7: Abnormal CEP17: Abnormal LSI 9p21: Normal Interpretation: Abnormal profile Controls stained appropriately. Note: Abnormal results are considered suspicious for urothelial carcinoma. 03/03/2025 5:02 PM EDT [facility] Clinical Information Neoplasm of uncertain behavior unspecified D48.9 Elevated prostate-specifi c antigen (PSA) R97.20 Urine Cytology/FISH (now) 03/03/2025 5:02 PM EDT [facility] Gross Description A. Cystoscopic, ([id number]): Received one ThinPrep slide for cytology and one ThinPrep slide for UroVysion FISH 03/03/2025 5:02 PM EDT [facility] Disclaimer Unless otherwise specified, all tissue is 10% NB formalin fixed and paraffin embedded. Technical pathology services provided by [facility] at [address] [place] [address] [address], [place] [address] (CLIA #[id number]/Latonia Bruno MD, Auto Body Worker) 03/03/2025 5:02 PM EDT [facility] Tissue Cystoscope / Unknown 02/12/2025 02/17/2025 2:18 PM EDT us Kendell Craft MD LAB PATHOLOGY ORDERABLES Fi nal Result [facility] [address] [place] [address], documented in this encounter Visit Diagnoses Diagnosis Elevated prostate specific antigen (PSA) Neoplasm of uncertain behavior, unspecified documented in this encounter Care Teams Media Marketing Specialist Relationship Specialty Start Date End Date Irvin Redding MD [address] [place] [address] PCP - General Renal Dietitian 10/22/19 documented as of this encounter
--- OUTSIDE RECORDS SUMMARY | 2025-08-19 13:29 | XMS_ITS | Clinical Summary ---
Author Organization [facility] Address [address] [place] [address] Phone Care Team Providers Care Decay Control Operator Name Role Phone Irvin Redding MD Primary Care Provider [phone] Encounters Date Type Department Care Team Description 07/12/2025 Lab Requisition [facility] Lab [address] [place] [phone] Kendell Craft MD Personal history of malignant neoplasm of bladder; Neoplasm of unspecified behavior of bladder 07/06/2025 Lab Requisition [facility] Lab [address] [place] [address] Kendell Craft MD Neoplasm of [...] EXTENSIVELY (>90%) DENUDED 07/07/2025 9:10 AM EDT [facility] Comment While no neoplasm is observed in this specimen, denudation may sometimes reflect cases of CIS where the neoplastic cells have shed as a result of discohesion. Additional tissue and/or cytology sampling may be helpful, if clinically indicated. 07/07/2025 9:10 AM EDT [facility] Clinical Information Z85.51 - H/O Bladder neoplasm (malignant) D49.4 [id number] 07/07/2025 9:10 AM EDT [facility] Gross Description A. Urinary Bladder, Tumor: Labeled Bladder tumor . Received in formalin are four soft, timmons-red tissue fragments, measuring 0.6 x 0.4 x 0.3 cm in greatest diameters, which are wrapped in paper and submitted in toto in one cassette, 4 pieces, multiple levels. /al 07/07/2025 9:10 AM EDT [facility] Disclaimer Unless otherwise specified, all tissue is 10% NB formalin fixed and paraffin embedded. Technical pathology services provided by [facility] at [address] [place] [address] [address], [place] [address] (CLIA #[id number]/Sa penny Bruno MD, Compensation Coordinator) 07/07/2025 9:10 AM EDT [facility] Tissue Urinary bladder structure / Unknown 07/02/2025 07/06/2025 12:27 PM EDT us Kendell Craft MD LAB PATHOLOGY ORDERABLES Fi nal Result [facility] [address] [place] [address], * Non-gynecologic cytology (07/01/2025 12:00 AM EDT) Final Diagnosis A. Cystoscopic, [id number]: Negative for high grade urothelial carcinoma. Acute inflammatory cells are present. Results of UroVysion fluorescence in situ hybridization (FISH) testing: CEP3: Normal CEP7: Normal CEP17: Normal LSI 9p21: Normal Interpretation: Normal profile Controls stained appropriately. Note: The results are intended as a screening device and should be interpreted in association with other clinical and pathological findings. 07/28/2025 5:02 PM EDT [facility] at 1702 EDT Specimen A Adequacy Satisfactory for evaluation 07/28/2025 5:02 PM EDT [facility] Clinical Information Z85.51 Personal history of malignant neoplasm D49.4 Neoplasm of unspecified behavior... Urine Cytology/FISH (now) 07/28/2025 5:02 PM EDT [facility] Gross Description A. Cystoscopic, [id number]: Received one ThinPrep slide for cytology and one ThinPrep slide for UroVysion FISH 07/28/2025 5:02 PM EDT [facility] Disclaimer Unless otherwise specified, all tissue is 10% NB formalin fixed and paraffin embedded. Technical pathology services provided by [facility] at [address], [place] [address] (CLIA #[id number]/Latonia Bruno MD, Compensation Coordinator) 07/28/2025 5:02 PM EDT [facility] Urine Cystoscope / Unknown 07/01/2025 07/12/2025 10:48 AM EDT us Kendell Craft MD LAB CYTOLOGY ORDERABLES Fin al Result [facility] [address] [place] [address], from Last 3 Months Insurance MEDICARE [facility] MAIL ADMIN [address] ([facility]) Advance Directives Documents on File Type Date Recorded Patient Crab Steamer Expl anation Health Care Decision (hx) 07/27/2022 AD SHIN DIRECTIVE Health Care Decision (hx) 07/27/2022 AD SHIN DIRECTIVE Health Care Decision (hx) 07/27/2022 AD SHIN DIRECTIVE Care Teams Decay Control Operator Relationship Specialty Start Date End Date Irvin Redding MD [address] [place] [phone] PCP - General Knockdown Man 10/22/19
--- OUTSIDE RECORDS SUMMARY | 2025-08-19 13:29 | XMS_ITS | Encounter Summary ---
[facility] Organization [facility] Address [address] [place] [address] Care Team Providers Care Manager Universal Name Role Phone Irvin Redding MD Primary Care Provider [phone] Encounter Details Date Type Department Care Team (Late st Contact Info) Description 07/06/2025 Lab Requisition [facility] Lab [address] [facility] [place] [phone] Kendell Craft MD [address] [facility] [address] [place] [address] Neoplasm of unspecified behavior of bladder; Personal [...] EXTENSIVELY (>90%) DENUDED 07/07/2025 9:10 AM EDT [facility] Comment While no neoplasm is observed in this specimen, denudation may sometimes reflect cases of CIS where the neoplastic cells have shed as a result of discohesion. Additional tissue and/or cytology sampling may be helpful, if clinically indicated. 07/07/2025 9:[address] [facility] Clinical Information Z85.51 - H/O Bladder neoplasm (malignant) D49.4 [id number] 07/07/2025 9:[address] [facility] Gross Description A. Urinary Bladder, Tumor: Labeled Bladder tumor . Received in formalin are four soft, timmons-red tissue fragments, measuring 0.6 x 0.4 x 0.3 cm in greatest diameters, which are wrapped in paper and submitted in toto in one cassette, 4 pieces, multiple levels. /al 07/07/2025 9:[address] [facility] Disclaimer Unless otherwise specified, all tissue is 10% NB formalin fixed and paraffin embedded. Technical pathology services provided [facility] [address] [facility] [address] [address] (CLIA #[id number]/Sa penny Bruno MD, Podiatry Teacher) 07/07/2025 9:[address] [facility] Tissue Urinary bladder structure / Unknown 07/02/2025 07/06/2025 12:27 PM EDT us Kendell Craft MD LAB PATHOLOGY ORDERABLES Fi nal Result [facility] [address] [place] [address], documented in this encounter Visit Diagnoses Diagnosis Neoplasm of unspecified behavior of bladder Personal history of malignant neoplasm of bladder documented in this encounter Care Teams Manager Universal Relationship Specialty Start Date End Date Irvin Redding MD [address] [place] [address] PCP - General Preparation Supervisor 10/22/19 documented as of this encounter
--- OUTSIDE RECORDS SUMMARY | 2025-08-19 13:29 | XMS_ITS | Clinical Summary ---
Author Organization [facility] Address [address] [place] [address] Care Team Providers Care Assurance Manager Insurance Name Role Phone Irvin Redding MD Primary Care Provider [phone] Allergies No known active allergies Medications buPROPion [...] topic Insurance MEDICARE PART A & B [place] [id number] Care Teams Assurance Manager Insurance Relationship Specialty Start Date End Date Irvin Redding MD [address] [place] [id number] PCP - General 04/23/23
--- OUTSIDE RECORDS SUMMARY | 2025-08-19 13:29 | XMS_ITS | Encounter Summary ---
Author Organization [facility] Address [address] [place] [address] Care Team Providers Care Roll Tester Name Role Phone Irvin Redding MD Primary Care Provider [phone] Encounter Details Date Type Department Care Team (Late st Contact Info) Description 02/15/2025 Lab Requisition [facility] - Main Lab [address] [facility] [place] [phone] Kendell Craft MD [address] [facility] [address] [place] [address] Elevated prostate specific antigen (PSA) Social History [...] (02/12/2025) Final Diagnosis A. Prostate, Left Middle [place] Biopsy: -BENIGN PROSTATE TISSUE B. Prostate, Left Lateral [place] Biopsy: -BENIGN PROSTATE TISSUE C. Prostate, Left Middle Middle Biopsy: -BENIGN PROSTATE TISSUE D. Prostate, Left Lateral Middle Biopsy: -BENIGN PROSTATE TISSUE E. Prostate, Left Middle Base Biopsy: -BENIGN PROSTATE TISSUE F. Prostate, Left Lateral Base Biopsy: -BENIGN PROSTATE TISSUE G. Prostate, Right Middle [place] Biopsy: -BENIGN PROSTATE TISSUE H. Prostate, Right Lateral [place] Biopsy: -BENIGN PROSTATE TISSUE I. Prostate, Right [...] situ: Not identified 02/16/2025 3:33 PM EDT [facility] Clinical Information Elevated PSA R97.20 PSA: 4.9 (02/12/25) [id number] 02/16/2025 3:[address] [facility] Gross Description A. Prostate, Left Middle [place] Biopsy: Received, properly labeled, are two H and E stained slides and two unstained slides. B. Prostate, Left Lateral [place] Biopsy: Received, properly labeled, are two H [...] two unstained slides. G. Prostate, Right Middle [place] Biopsy: Received, properly labeled, are two H and E stained slides and two unstained slides. H. Prostate, Right Lateral [place] Biopsy: Received, properly labeled, are two H [...] multiple levels. /al 02/16/2025 3:[address] [facility] Disclaimer Unless otherwise specified, all tissue is 10% NB formalin fixed and paraffin embedded. Technical pathology services provided by [facility] at [address], [place] [address] (CLIA #[id number]/S davion Bruno MD, Contract Administrator) 02/16/2025 3:[address] [facility] Tissue Urinary bladder structure / [...] MD LAB PATHOLOGY ORDERABLES Fi nal Result [facility] [address] [place] [address], documented in this encounter Visit Diagnoses Diagnosis Elevated prostate specific antigen (PSA) documented in this encounter Care Teams Roll Tester Relationship Specialty Start Date End Date Irvin Redding MD [address] [place] [address] PCP - General Aerospace Stress Engineer 10/22/19 documented as of this encounter
--- OUTSIDE RECORDS SUMMARY | 2025-08-19 13:29 | XMS_ITS | Clinical Summary ---
Author Organization [facility] Address [address] [place] [address] Care Team Providers Care Senior Designer/Art Director Name Role Phone Irvin Redding MD Primary Care Provider [phone] Allergies No known active allergies Medications Medication [...] age to complete this topic Care Teams Senior Designer/Art Director Relationship Specialty Start Date End Date Irvin Redding MD [address] [address] PCP - General Customer Support Consultant 10/22/19
== END 2025-08-19 11:51 | disposition home or self-care (01) ==
LOC: HO.HOS 11:02
PROVIDERS: Visit Provider Orthopaedic Surgery
DX: M16.12 Unilateral primary osteoarthritis, left hip (principal)
CPT/HCPCS: 99214

== ENCOUNTER → 2025-09-16 10:29 | Outpatient (BNVA) | payer BC, SELFPAY | DX: Z01.818 Encounter for other preprocedural examination (principal) ==

== ENCOUNTER 2025-09-20 09:54 | Outpatient (AMB) | payer BC, MEDICARE, SELFPAY ==
--- NOTE | 2025-09-20 08:23 | MHC.OFFVIS ---
Vital Signs 09/20/25 10:10 Height 6 ft 1 in Weight 190 lb BMI 25.1 Intake Visit Reasons: pre-op L LATRICIA w/NE 09/28/25 Intake Note: Kendell is a 65 year old male who presents today for a preoperative left LATRICIA, scheduled with Dr. Corcoran on 09/28/25. Pain management agreement reviewed and signed. Allergies No Known Allergies Allergy (Verified 09/20/25 10:10) Medication List - Last Reconciled 09/20/25 by Yessy Cheney PA-C acetaminophen ER 650 mg PO Q12H PRN bupropion HCl SR (Wellbutrin SR) 75 mg PO QAM clonazepam 0.5 mg PO BEDTIME PRN diclofenac sodium 1% (Arthritis Pain (diclofenac)) 2 grams topical QID multivitamin 1 tab PO DAILY trazodone 25 mg PO BEDTIME PRN HPI HPI pre-op L LATRICIA w/NE 09/28/25: Details: 65-year-old gentleman presents to the office today for a preop orthopedic clearance. He is scheduled for a left total hip arthroplasty with Dr. Corcoran on 09/28/2025. Patient has a history of steroid injections in his left hip every 3 months for the last few years which is no longer working. He is doing physical therapy which improved some of his strength however he continued to have pain and limitations with daily activities. On a daily basis the ability to walk his dog, perform stairs and walk long distances continues to remain challenging. He had a right total hip arthroplasty performed by [facility] in 2010. Right total knee arthroplasty by Dr. Olvera approximately 3 years ago. She had bilateral shoulders were placed. All surgeries and recoveries were straight forward with no complications. Patient has a history of bladder cancer and completed his BCG treatment. Patient has a history of substance abuse with opiates and was on Sublocade and Suboxone which she has not used in about a year. No active substance use. Patient lives at home by himself but does have his mom available to help PCP clearance obtained on 09/08/2025: 65-year-old male with a history of complex mood disorder, substance abuse in remission, and bladder cancer in remission here for a preop medical evaluation prior to hip replacement surgery. Patient has risk for major adverse cardiac events his low without signs of symptoms of active cardiac conditions. This meets ACC/aha guidelines for proceeding to noncardiac surgery without additional testing. Hypertension: Meets goals of less than 180/110 Pulmonary assessment: Patient without intrinsic pulmonary conditions. No further pulmonary workup advised. Risk of pulmonary complications by a ORIF as CAT analysis: Low NABOR assessment: The patient does not have a known diagnosis of NABOR screen as low risk. Recommendation: No additional workup Or intervention. VTE risk: Elevated-joint replacement bleeding risk: Low VTE prophylaxis: Joint replacement surgery-35 days of chemical VTE prophylaxis plus IP sees while inpatient. Management agent at surgeon's discretion. No absolute medical contraindications identified to proceeding with the proposed surgery [facility] Medical History (Updated 08/30/25 @ 12:22 by Margaux Montgomery RN) Anxiety RSV (acute bronchiolitis due to respiratory syncytial virus) COVID-19 Bladder cancer Hx of substance abuse History of alcohol abuse Hypogonadism in male Osteoarthritis Sciatica Raynauds syndrome Elevated PSA Depression ACL tear Aftercare following bilateral shoulder joint replacement surgery Surgical History History of esophagogastroduodenoscopy (EGD) History of total right knee replacement (~2021) History of repair of ACL Hx of blepharoplasty Hx of laminectomy History of right hip replacement (~2010) H/O colonoscopy S/P bilateral inguinal hernia repair History of transurethral resection of ureterocele Hx of shoulder replacement (~2013) Social History Are you a primary lawn care technician to a significant other at home: No Do you presently have visiting nurse or other home services: No Patient Tobacco Use Status: Never used Tobacco Current occupational status: employed Current occupation: Contractor Review of Systems Const All systems reviewed & are unremarkable except as noted in HPI and below Physical Exam Vital Signs: BMI result Body Mass Index 25.1 Const General: cooperative, healthy appearing, comfortable, no acute distress, well developed and alert Orientation/consciousness: patient oriented x3 HEENT Head: Yes normal to inspection, Yes normocephalic and Yes atraumatic Eyes General: appearance normal, both eyes and all related structures Neck Neck: Yes normal visual inspection and Yes no lymphadenopathy Resp Effort & Inspection: normal respiratory effort and able to speak in complete sentences Cardio Rate: regular rate Peripheral pulses: Peripheral pulses 2+ throughout GI Inspection: Yes normal to inspection Palpation (GI): Soft to palpation Skin General skin exam: no rashes or lesions noted Neuro General: patient oriented x3 Extrem Other: Left hip skin is intact with no open wounds abrasions or rashes. He has pain with range of motion and hip flexion. He walks with antalgic gait pattern. Calf is supple and nontender neurovascularly intact. Psych Appearance: grossly normal Mental Status: mental status grossly normal Assessment & Plan Assessment & Plan (1) Osteoarthritis of left hip: Code(s): M16.12 - Unilateral primary osteoarthritis, left hip Category: Medical Plan: Patient has exhausted all conservative measures consisting of lifestyle modifications, physical therapy, analgesics, corticosteroid injections and use of assisted devices and continues to have significant limitations in daily activities along with decreased quality of life. Given the patient's desire to improve their quality of life, surgical intervention consisting of joint replacement surgery is recommended at this time.? We discussed the procedure in detail today; which includes pre op preparation with labs and reviewing patients medication regimen prior to surgery. Patient instructed to avoid any anti-inflammatory medications. He was sent to the lab for CBC/BMP and type and screen. I discussed at length the post op course which includes physical therapy services in the hospital along with the discharge routine and the patients plan upon discharge. Patient would like to be discharged home with VNA services. I explained to the patient, once they are DC home, they will receive VNA services which will include PT 2-3x per week. We also discussed their choice for outpatient PT once they are discharged from home PT. Patient would like to attend [facility] Physical therapy and [facility] as it is close to home. Order was faxed to their facility and he will make an appointment to begin 2 weeks postop. Post op DVT ppx was also discussed and the considering the patients history of bladder cancer in remission he would benefit from Lovenox for DVT prophylaxis. I reviewed with the patient their post op pain medication regimen along with the detailed wean program. The patient did express understanding of this and agreed to the narcotic policy. Lastly, I discussed with the patient the risks to the procedure. Risks including but not limited to infection, injury to surrounding nerves, tissue , bone, small and large vessels, stiffness, aseptic loosening, fracture, dislocation, amputation, DVT/PE along with intraoperative complications including but not limited to . The patient does express understanding, all questions were answered and the patient would like to proceed? with left total hip arthroplasty with Dr. Corcoran. Consents were signed and dated while in the office today.? Post-Operative Recovery Notes: DVT ppx : [facility] plan: Home with VNA Physical Therapy: JULISA Velasquez obtained Orders: Orders Basic Metabolic Panel Today Z01.818 - Encounter for other preprocedural examination Complete Blood Count Auto Diff Today Z01.818 - Encounter for other preprocedural examination Type and Screen Today Z01.818 - Encounter for other preprocedural examination PT Evaluation and Treatment Today Z96.642 - Presence of left artificial hip joint Coding Level of Care Code Est Pt Level 3 (38143) Complex visit Add On G2211 Diagnoses Osteoarthritis of left hip M16.12
[2025-09-20 10:10] VITALS: BMI 25.1
== END 2025-09-20 11:15 | disposition home or self-care (01) ==
LOC: HO.HOS 09:54
PROVIDERS: Visit Provider Physician Assistant
DX: M16.12 Unilateral primary osteoarthritis, left hip (principal)
CPT/HCPCS: 99024

== ENCOUNTER 2025-09-28 07:05 | Day surgery (SDC) | payer BC, SELFPAY ==
[2025-08-30 12:35] VITALS: BP 159/67; PULSE 55; RESP 18; O2SAT 98; BMI 24.8
--- NOTE | 2025-08-30 12:38 | HO.ANESPROP2 ---
Documented by User: Tahmina Friedman NP 08/30/25 13:15 HPI - Anesthesia Eval Consult details Narrative: 65 yr old male for left total hip replacement, scheduled for 09/28/25, seen in [facility] 08/30/25 *Has PCP or [facility] preop clearance end of Aug 2025 No recent illness. No CP or SOB with moderate to high intensity exercise 5-6 days per week, running, swimming & weight lifting. H/O bladder ca in 2024, s/p TURBT, BCG. H/O knee replacement 2021 at [facility] Active Problems Active Problems: All Active Problems Osteoarthritis of left hip (Acute) Osteoarthritis, hand (Acute) Osteoarthritis of carpometacarpal joint of left thumb (Acute) Past Medical History Medical History Anxiety RSV (acute bronchiolitis due to respiratory syncytial virus) COVID-19 Bladder cancer Hx of substance abuse History of alcohol abuse Hypogonadism in male Osteoarthritis Sciatica Raynauds syndrome Elevated PSA Depression ACL tear Aftercare following bilateral shoulder joint replacement surgery Family History Family history of problems with anesthesia: No Surgical History Surgical History History of esophagogastroduodenoscopy (EGD) History of total right knee replacement (~2021) History of repair of ACL Hx of blepharoplasty Hx of laminectomy History of right hip replacement (~2010) H/O colonoscopy S/P bilateral inguinal hernia repair History of transurethral resection of ureterocele Hx of shoulder replacement (~2013) History of Problems with Anesthesia: No Social History Social History Are you a primary date night caregiver to a significant other at home: No Do you presently have visiting nurse or other home services: No Patient Tobacco Use Status: Never used Tobacco Use of substances other than those prescribed or required for medical reasons: No Have you been hit, kicked, punched, or otherwise hurt by someone within the past year? If so, by whom?: No Are you DNR?: No Advance Directives: No Advance Directives Information Provided: Yes Advance Directives on File: No Current occupational status: employed Current occupation: Contractor Meds Allergies Allergy/AdvReac Type Severity Reaction Status Date / Time No Known Allergies Allergy Verified 09/20/25 10:10 Home Medications ?Medication ?Instructions ?Recorded ?Confirmed ?Last Taken ?Type bupropion HCl 150 mg tablet,12 hr 75 mg PO QAM 10/22/24 09/20/25 09/28/25 History sustained-release (Wellbutrin SR) clonazepam 0.5 mg tablet 0.5 mg PO BEDTIME PRN Anxiety 10/22/24 09/20/25 Unknown History trazodone 50 mg tablet 25 mg PO BEDTIME PRN Insomnia 10/22/24 09/20/25 Unknown History acetaminophen 650 mg 650 mg PO Q12H PRN Pain 08/30/25 09/20/25 Unknown History tablet,extended release multivitamin 1 tab PO DAILY 08/30/25 09/20/25 Unknown History Exam Airway Mallampati Class: I TM Dist: >3cm Neck ROM: Full Loose/Missing/Broken Teeth: No Heart: RRR Lungs: CTAB Assessment and Plan Final Anesthetic Review Family History of Problems with Anesthesia: No History of Problems with Anesthesia: No Documented by User: Tati Medina MD 09/28/25 08:41 PMFSH Past Medical History Medical History Anxiety RSV (acute bronchiolitis due to respiratory syncytial virus) COVID-19 Bladder cancer Hx of substance abuse History of alcohol abuse Hypogonadism in male Osteoarthritis Sciatica Raynauds syndrome Elevated PSA Depression ACL tear Aftercare following bilateral shoulder joint replacement surgery Surgical History Surgical History History of esophagogastroduodenoscopy (EGD) History of total right knee replacement (~2021) History of repair of ACL Hx of blepharoplasty Hx of laminectomy History of right hip replacement (~2010) H/O colonoscopy S/P bilateral inguinal hernia repair History of transurethral resection of ureterocele Hx of shoulder replacement (~2013) Social History Social History Are you a primary date night caregiver to a significant other at home: No Do you presently have visiting nurse or other home services: No Patient Tobacco Use Status: Never used Tobacco Use of substances other than those prescribed or required for medical reasons: No Have you been hit, kicked, punched, or otherwise hurt by someone within the past year? If so, by whom?: No Are you DNR?: No Advance Directives: No Advance Directives Information Provided: Yes Advance Directives on File: No Current occupational status: employed Current occupation: [employer] Allergies Allergy/AdvReac Type Severity Reaction Status Date / Time No Known Allergies Allergy Verified 09/20/25 10:10 Home Medications ?Medication ?Instructions ?Recorded ?Confirmed ?Last Taken ?Type bupropion HCl 150 mg tablet,12 hr 75 mg PO QAM 10/22/24 09/20/25 09/28/25 History sustained-release (Wellbutrin SR) clonazepam 0.5 mg tablet 0.5 mg PO BEDTIME PRN Anxiety 10/22/24 09/20/25 Unknown History trazodone 50 mg tablet 25 mg PO BEDTIME PRN Insomnia 10/22/24 09/20/25 Unknown History acetaminophen 650 mg 650 mg PO Q12H PRN Pain 08/30/25 09/20/25 Unknown History tablet,extended release multivitamin 1 tab PO DAILY 08/30/25 09/20/25 Unknown History Assessment and Plan Assessment Anesthesia Assessment: Anesthesia Plan Discussed and Chart Reviewed Final Anesthetic Review NPO: Yes ASA Class: III Final Preanesthetic Review: No Changes in Pt Med Stat, Meds/Allgs Chart Reviewed, Consent Obtained/Reviewed and Anes Risks/Benef Reviewed Patient Risk: Intermediate Procedure Risk: Intermediate Anesthetic Plan Anesthetic Plan: GA and Agree w/ Assess. and Plan Disposition: Standard PACU
[2025-08-30 15:00] LABS: MRSA Nasal PCR NEGATIVE (Negative); SA Nasal PCR NEGATIVE (Negative)
[2025-09-20 11:11] LABS: MANUAL DIFF FLAG NO
[2025-09-20 11:59] LABS: Hematocrit 45.9 % (42.0-52.0); Hemoglobin 15.1 g/dl (14.0-18.0); Imm Gran Abs Auto 0.01 X10*3/uL (0.00-0.03); Imm Gran Pct Auto 0.3 % (0.0-0.4); Lymphocytes Absolute Auto 1.3 X10*3/uL (1.2-4.9); Mean Corpuscular HGB Conc 32.9 g/dl (31.0-36.0); Mean Corpuscular Hemoglobin 29.0 pg (27.0-33.0); Mean Corpuscular Volume 88.3 fL (80.0-98.0); NRBC Abs Auto 0.000 X10*3/uL (0.0-0.012); NRBC Pct Auto 0.0 /100WBC (0.0-0.2); Platelet Count 315 X10*3/uL (160-400); Red Blood Count 5.20 X10*6/uL (4.60-5.80); White Blood Count 3.8 X10*3/uL (4.8-10.8)
[2025-09-20 12:44] LABS: Anion Gap 10 (12-20); Blood Urea Nitrogen 22 mg/dL (9-16); Calcium 9.1 mg/dL (8.4-10.2); Carbon Dioxide 31 mmol/L (22-29); Chloride 103 mmol/L (96-108); Creatinine Clr Calc Pharmacy 84.3; Estimated Glomerular Filt Rate > 60; Potassium 4.6 mmol/L (3.3-5.1); Sodium 139 mmol/L (135-145)
[2025-09-28] VITALS (21 sets, daily range): BP systolic 107–145; BP diastolic 37–79; PULSE 60–70; RESP 12–19; TEMP 36.5–37.6; O2SAT 93–99; BMI 24.6
--- NOTE | ~2025-09-28 | XR_ITS ---
EXAMINATION: XR PELVIS 1-2 VIEWS HISTORY: LT LATRICIA COMPARISON: Comparison is made with the prior examination dated 08/16/2025. FINDINGS: Two AP views of the pelvis are submitted. The patient is status post interval left total hip arthroplasty. The orthopedic elements are in anatomic alignment on these AP views. There is no fracture or dislocation. A right hip prosthesis is also noted. Postoperative changes are noted in the soft tissues about the left hip. XR/XR pelvis 1-2V IMPRESSION: Status post left total hip arthroplasty. Electronically signed by: Tenzin Joseph MD 09/28/2025 12:17 PM [facility]
--- NOTE | 2025-09-28 07:47 | MHC.SHP ---
Pre-Procedural Eval Section A - 24 Hr Update-Section A only Date of Service: 09/28/25 The patient is an INPATIENT: No Changes since office visit: No Cold of Flu in the past 2 weeks, No New Medical Problems, No Changes in Medication and No Patient answered all questions The patient has been examined within 24 hours of the surgical procedure. The History & Physical has been completed within 30 days and I have reviewed it.: Yes Section B - Complete if H&P > 30 days Chief Complaint: Unilateral primary osteoarthritis, left hip Allergies: Allergies Allergy/AdvReac Type Severity Reaction Status Date / Time No Known Allergies Allergy Verified 09/20/25 10:10 Plan I have reviewed the history and physical and performed a pertinent physical examination on my patient. No changes have occurred unless specified. Time Spent With Patient Time: Total time managing care of this patient today ____ minutes.
[2025-09-28] MEDS: oxyCODONE HCl ER 10 MG TAB.ER.12H PO ×2 (07:58→20:52)
[2025-09-28 08:03] LABS: Hematocrit 49.5 % (42.0-52.0); Hemoglobin 16.1 g/dl (14.0-18.0)
[2025-09-28] MEDS: Lactated Ringers 1,000 ML 100 ML IVCONT ×3 (08:32→22:46)
[2025-09-28 09:32] LABS: MRSA Nasal PCR NEGATIVE (Negative); SA Nasal PCR POSITIVE (Negative)
--- NOTE | 2025-09-28 11:31 | P.BOP_ITS ---
Brief Operative Note Date of Service: 09/28/25 Pre-op diagnosis: Left hip OA Post-op diagnosis: same Procedure: Left LATRICIA Implants: [place] Trident2 54/ 2 acetabular screws and 20 deg liner; Accolade2 #4 127 with +5/36 ceramic Surgeon: Agapito Corcoran MD Anesthesia: GETA and local Was an Steward/Stewardess Bath used for this Procedure?: Yes Steward/Stewardess Bath: Yessy Cheney Estimated blood loss (mL): 250 IV fluids (mL): 1,000 Pathology: other Condition: stable Disposition: PACU
--- NOTE | 2025-09-28 13:48 | MHC.CM.PN ---
pt abdirahman prio to being seen by cm pt abdirahman home self care
--- NOTE | 2025-09-28 14:02 | PHA.MEDREC ---
Addendum entered by Allan Knox RPh 09/28/25 14:12: Reviewed by [facility] Original Note: Pharmacy Consult ? Medication Reconciliation Pharmacy reviewed med rec done by nursing. Spoke with pt and he reviewed the med rec confirmed. Pt taking Clonazepam 0.5mg tabs 1 at bedtime; originally written for 1/2 AM 1 PM, pt doesn't take 1/2 am dose due to it making him sleepy throughout the day, he is taking Diclofenac 75mg BIDWM PRN arthritis; nursing only confirmed Diclofenac Gel, Pt confirmed he still has Diclofenac Gel he uses as needed for hand pain he has and pt taking Bupropion 150mg tabs but states he has been cutting them in half for a while for convenience .
[2025-09-28] MEDS: oxyCODONE HCl Immed Release 5 MG TABLET PO (14:54)
--- NOTE | 2025-09-28 14:54 | P.CONHOSP_ITS ---
History of Present Illness Data of Consult Service Date: 09/28/25 Primary Care Provider: Irvin Redding MD [facility] Reason for consult: Medical consult 65-year-old male with past medical history of complex mood disorder, substance abuse in remission, Raynaud's syndrome, depression, bladder cancer in remission, anxiety, osteoarthritis, presents for left total hip arthroplasty with Dr. Corcoran today. Patient is awake and alert, has been out of bed walking, mild nausea. Taking sips of clear. Declined Zofran when offered by nurse. His vitals are stable. Dressing clean dry and intact to left hip. No strike through drainage. Positive dorsi plantar flexion. Positive CMS. He denies any shortness of breath, dizziness, chest pain, abdominal pain. Out of bed sitting in chair. Review of Systems 2 Review of Systems: Patient has no acute medical complaints at this time All other systems are reviewed and are negative PMFSH Medical History Anxiety RSV (acute bronchiolitis due to respiratory syncytial virus) COVID-19 Bladder cancer Hx of substance abuse History of alcohol abuse Hypogonadism in male Osteoarthritis Sciatica Raynauds syndrome Elevated PSA Depression ACL tear Aftercare following bilateral shoulder joint replacement surgery Surgical History History of esophagogastroduodenoscopy (EGD) History of total right knee replacement (~2021) History of repair of ACL Hx of blepharoplasty Hx of laminectomy History of right hip replacement (~2010) H/O colonoscopy S/P bilateral inguinal hernia repair History of transurethral resection of ureterocele Hx of shoulder replacement (~2013) Social History Are you a primary pharmacy care coordinator to a significant other at home: No Do you presently have visiting nurse or other home services: No Comment: COUNTS CORRECT Patient Tobacco Use Status: Never used Tobacco Use of substances other than those prescribed or required for medical reasons: No Have you been hit, kicked, punched, or otherwise hurt by someone within the past year? If so, by whom?: No Are you DNR?: No Advance Directives: No Advance Directives Information Provided: Yes Advance Directives on File: No Current occupational status: employed Current occupation: Contractor [employer] Allergies Allergy/AdvReac Type Severity Reaction Status Date / Time No Known Allergies Allergy Verified 09/20/25 10:10 Active Medications: Current Medications Acetaminophen (Acetaminophen 325 Mg Tablet) 650 mg PO Q6H PRN PRN Reason: Pain, Mild 1-3,fever,headache Bupropion HCl (Bupropion Hcl 75 Mg Tablet) 75 mg PO DAILY [facility] Last Admin: 09/28/25 14:17 Dose: Not Given Celecoxib (Celecoxib 200 Mg Capsule) 200 mg PO BID GOKUL Clonazepam (Clonazepam 0.5 Mg Tablet) 0.5 mg PO BEDTIME PRN PRN Reason: Anxiety Docusate Sodium (Docusate Sodium 100 Mg Capsule) 100 mg PO BID [facility] Enoxaparin Sodium (Enoxaparin Sodium 40 Mg/0.4 Ml Syringe) 40 mg SUBCUT Q24H GOKUL Hydromorphone HCl (Hydromorphone Hcl 1 Mg/Ml Syringe) 0.25 mg IVPUSH Q4H PRN; Protocol PRN Reason: Pain, Severe (Pain Scale 7-10) Last Admin: 09/28/25 14:15 Dose: 0.25 mg Lactated Ringer's (Lr) 1,000 mls @ 100 mls/hr IVCONT .Q10H GOKUL Stop: 09/29/25 07:00 Last Admin: 09/28/25 13:29 Dose: 100 mls/hr Cefazolin Sodium/Dextrose (Ancef) 2 gm in 50 mls @ 100 mls/hr IV POSTOP ONE Stop: 09/28/25 16:29 Last Admin: 09/28/25 14:30 Dose: 100 mls/hr Magnesium Hydroxide (Milk Of Magnesia 30 Ml Oral.Susp) 30 ml PO DAILY PRN PRN Reason: Constipation Ondansetron HCl (Ondansetron Hcl 4 Mg/2 Ml Vial) 4 mg IVPUSH Q8H PRN PRN Reason: Nausea and Vomiting Oxycodone HCl (Oxycodone Hcl Immed Release 5 Mg Tablet) 5 mg PO Q4H PRN PRN Reason: Pain, Moderate(Pain Scale 4-6) Oxycodone HCl (Oxycodone Hcl Er 10 Mg Tab.Er.12h) 10 mg PO BID [facility] Sodium Chloride (0.9 % Sodium Chloride Flush 3 Ml Syringe) 3 ml IVFLUSH QSHIFT GOKUL Trazodone HCl (Trazodone Hcl 25 Mg Halftab) 25 mg PO BEDTIME PRN PRN Reason: Insomnia Home Medications ?Medication ?Instructions ?Recorded ?Confirmed ?Last Taken ?Type bupropion HCl 150 mg tablet,12 hr 75 mg PO DAILY 10/2209/28/25 09/28/25 History sustained-release (Wellbutrin SR) clonazepam 0.5 mg tablet 0.5 mg PO BEDTIME PRN Anxiet y 10/22/24 09/28/25 Unknown History trazodone 50 mg tablet 25 mg PO BEDTIME PRN Insomni a 10/22/24 09/28/25 Unknown History acetaminophen 650 mg 650 mg PO Q12H PRN Pain 08/1409/28/25 Unknown History tablet,extended release multivitamin 1 tab PO DAILY 08/30/2509/1309/27/25 History cholecalciferol (vitamin D3) 125 125 mcg PO DAILY 09/1309/28/25 09/27/25 History mcg (5,000 unit) tablet (Vitamin D3) diclofenac sodium 1 % topical gel 2 g topical QID PRN Pain 09/28/25 09/28/25 Unknown History diclofenac sodium 75 mg 75 mg PO BID PRN arthritis 1 11/29/24 09/28/25 Unknown History tablet,delayed release Physical Exam 2 Vital Signs and Narrative: Vital Signs: Last Vital Signs Temp 97.7 F 09/28/25 13:56 Pulse 63 09/28/25 13:56 Resp 18 09/28/25 13:56 BP 134/58 L 09/28/25 13:56 Pulse Ox 96 09/28/25 13:56 O2 Del Method Nasal Cannula 09/28/25 13:56 O2 Flow Rate 2.0 09/28/25 13:56 BMI result Body Mass Index 24.6 Alert and oriented X3, calm and cooperative. Answers questions. Neuro: CN II-X11 intact, no neurological deficits ENT: Hearing intact, MMM Cardiac: S1 S2 RRR, No ectopy Pulmonary: lungs clear to auscultation, No increased WOB. Abdominal: BS active in all 4 quadrants, no guarding or tenderness MSK: Strength 5/5 upper and lower extremities : Deferred Extremities: No edema in lower extremities Psych: Cooperative and pleasant Skin: Warm and dry, Intact. Dressing to left hip without any strike through drainage Results Labs 09/28/25 07:51 09/20/25 11:09 Labs: Laboratory Results - last 24 hr 09/28/25 07:50 Nasal Screen MRSA (PCR) NEGATIVE Nasal S. aureus Screen POSITIVE A Nasal MRSA/S.aureus Interp SEE NOTE Imaging Radiologist's Impressions: Impressions Pelvis X-Ray 09/28/25 12:06 IMPRESSION: Status post left total hip arthroplasty. Electronically signed by: Tenzin Joseph MD 09/28/2025 12:17 PM [facility] Assessment and Plan (1) Osteoarthritis of left hip: Status: Acute Plan 65-year-old male with a past medical history listed below presents for an elective total left hip arthroplasty with Dr. Corcoran today. Left total hip arthroplasty Postop day 1. Vital signs are stable. Supportive care Weightbear as tolerated, plan per Orthopedics. Pain management per ortho VTE prophylaxis per Orthopedics History of bladder cancer, status post BCG Patient is followed by Dr. Craft at [facility] every 3 months for 3 years Mood disorder/history of EtOH substance use Wellbutrin, clonazepam and trazodone No recent use of substances Arthritis Uses diclofenac gel to hands. Tylenol as needed CODE STATUS: FULL CODE VTE PROPY: Lovenox
[2025-09-28] MEDS: traZODone HCL 25 MG HALFTAB PO (20:51)
[2025-09-29 03:41] VITALS: BP 113/57; PULSE 62; RESP 16; TEMP 37.4; O2SAT 93
[2025-09-29 06:05] LABS: MANUAL DIFF FLAG NO
[2025-09-29 06:06] LABS: Hematocrit 36.5 % (42.0-52.0); Hemoglobin 12.0 g/dl (14.0-18.0); Imm Gran Abs Auto 0.02 X10*3/uL (0.00-0.03); Imm Gran Pct Auto 0.4 % (0.0-0.4); Lymphocytes Absolute Auto 0.9 X10*3/uL (1.2-4.9); Mean Corpuscular HGB Conc 32.9 g/dl (31.0-36.0); Mean Corpuscular Hemoglobin 29.5 pg (27.0-33.0); Mean Corpuscular Volume 89.7 fL (80.0-98.0); NRBC Abs Auto 0.000 X10*3/uL (0.0-0.012); NRBC Pct Auto 0.0 /100WBC (0.0-0.2); Platelet Count 218 X10*3/uL (160-400); Red Blood Count 4.07 X10*6/uL (4.60-5.80); White Blood Count 5.7 X10*3/uL (4.8-10.8)
[2025-09-29 06:43] LABS: Anion Gap 9 (12-20); Blood Urea Nitrogen 15 mg/dL (9-16); Calcium 8.1 mg/dL (8.4-10.2); Carbon Dioxide 28 mmol/L (22-29); Chloride 103 mmol/L (96-108); Creatinine Clr Calc Pharmacy 74.3; Estimated Glomerular Filt Rate > 60; Potassium 3.9 mmol/L (3.3-5.1); Sodium 136 mmol/L (135-145)
[2025-09-29] MEDS: oxyCODONE HCl ER 10 MG TAB.ER.12H PO (07:07)
[2025-09-29 07:26] VITALS: BP 123/59; PULSE 74; RESP 16; TEMP 37.8; O2SAT 92
--- NOTE | 2025-09-29 08:44 | P.OP_ITS ---
Operative Note Operative Note Date of Service: 09/28/25 Narrative: Date of Service: 09/28/25 Pre-op diagnosis: Left hip OA Post-op diagnosis: same Procedure: Left LATRICIA Implants: [place] Trident2 54/ 2 acetabular screws and 20 deg liner; Accolade2 #4 127 with +5/36 ceramic Surgeon: Agapito Corcoran MD Anesthesia: GETA and local Was an Aircraft Pneudraulic Systems Mechanic used for this Procedure?: Yes Aircraft Pneudraulic Systems Mechanic: Yessy Cheney Estimated blood loss (mL): 250 IV fluids (mL): 1,000 Pathology: other Condition: stable Disposition: PACU Procedure in detail: Patient was brought into the operating room and placed in the right lateral decubitus position. All bony prominences were well padded and the limb was prepped and draped in standard sterile fashion. A time-out was called to identify proper site procedure proper surgeon IV antibiotics and 1 g of tranexamic acid were administered. I began by making a curvilinear incision over the posterolateral aspect of the greater trochanter. Dissection was taken down to the tensor fascia which was incised in line with the incision and a Charnley retractor was placed. Cautery was used to maintain hemostasis. The hip was internally rotated and the external rotators were identified. The vessels were cauterized and a full-thickness capsular/external rotator layer was developed starting just distal to the piriformis. This layer was tagged and a dull Hohmann retractor was placed underneath the neck in the hip was dislocated. A neck cut was made 1 cm proximal to the lesser trochanter and the head and neck were removed and measured 52 mm on the back table. The head was deformed and eburnated. I then removed the labrum and cauterized the fovea. I started with a 44 reamer and medialized to the inner table. I sequentially reamed up to a size 54 and impacted a 54mm cup at 45 degrees of inclination and 25 degrees of version. Two 6.5 mm acetaqbular screws were inserted into the superior safe zone using standard AO technique. I then placed a 20 deg posterior lipped liner and turned my attention to the femur. I identified the piriformis insertion and used this as a starting point for my anatoly cutter. The medius tendon was protected with a Hibs retractor. A Charnley awl was inserted in the canal and a curved curette used to remove the lateral bone. I irrigated copiously. I then sequentially broached in the patient's natural version to a size 4 and placed my trial implants. I used a #4/127/+5 based on my pre-operative template. I removed all instrumentation and copiously irrigated. I placed my final femoral implant and again took the hip through range of motion and was satisfied with the stability and length. The final +5 implant was impacted in place and the hip reduced. I then irrigated copiously and placed 1 g of local tranexamic acid. I performed a capsular closure with 2.0 fiberwire, Tequila's fascia with 0 Vicryl, subcuticular with 2-0 Vicryl and the skin with marquis. Zynrilif (14 ml) was injected at every closure layer. Patient was placed into a sterile dressing. Patient was extubated brought to the recovery room in stable condition. There were no known complications.
--- NOTE | 2025-09-29 09:35 | HO.POSTANES ---
Post Anesthesia Evaluation Post Anesthesia Evaluation Date of Service: 09/29/25 Vital Signs: Vital Signs Temp Pulse Resp BP Pulse Ox O2 Del Method 09/29/25 07:26 100.1 F 74 16 123/59 L 92 Room Air 09/29/25 03:41 99.4 F 62 16 113/57 L 93 Room Air 09/28/25 23:42 99.4 F 67 16 107/51 L 93 Room Air Anesthesia: General Mental Status: Awake Pain Control: Satisfactory Nausea/Vomiting: None Hydration: Adequate Anesthesia-Related Issues: No Anes. Related Issues
--- NOTE | 2025-09-29 09:56 | W.MHC.F2F ---
Service Date Service Date: 09/29/25 Encounter Date of encounter: 09/29/25 Reasons for Services Signs and symptoms assessed: Weakness, poor balance, poor gait mechanics Reason for physical therapy: home safety and mobility, therapeutic exercises, restore joint function, gait/transfer training, ADL training and energy conservation Reason for occupational therapy: home safety and mobility, therapeutic exercises, restore joint function, gait/transfer training, ADL training and energy conservation Overseeing Care: Agapito Corcoran Homebound: Leaving the home is medically contraindicated at this time without the asist of a device and/or another person due th the listed conditions above and below. Reason homebound: unsteady gait / fall risk, pain with ambulation, poor balance / fall risk and unable to drive Homebound supporting statement: Pt. is considered home bound due to recent surgery. Unable to drive, poor balance, poor gait mechanics. Certification: Based on the above findings, I certify that this patient is confined to the home and needs intermittent intermediate care, physical therapy and/or speech therapy, or continues to need occupational therapy. The patient is under my care, and I have initiated the establishment of the plan of care. The patient will be followed by a physician who will periodically review the plan of care. Time Spent With Patient Time: Total time managing care of this patient today ____ minutes.
--- NOTE | 2025-09-29 09:57 | PM.DS ---
DS: Providers Provider Date of discharge: 09/29/25 Primary care physician: Irvin Redding MD Consults: 09/28/25 13:15 Consult to Case Management Routine Comment: lt husam home vs str Consult to Hospitalist Routine Comment: [place]ing [place] [facility] [place] Reason For Exam: medical management DS: Diagnosis Discharge Diagnosis (1) Status post total hip replacement, left: Status: Acute DS: Summary Hospital Course Hospital Course: The patient underwent a successful left total hip arthroplasty on 09/28/[address] Corcoran, was transferred to PACU and then to the floor to recover. During their stay, their vitals were stable . Labs were unremarkable, H/H 12.0/36.5. POD 1 he was started on Lovenox 40 mg subQ once a day for DVT ppx, they also received Physical Therapy services twice a day. Physical therapy should include gait training, core and lumbar strength, glute strength. Posterior precautions intact. WBAT. Prior to discharge, his dressing was clean dry and intact,. The Aquacel dressing should remain intact and dry at all times. Any concerns with the dressing, please contact orthopedic office. No showering. The plan is to be discharged home with VNA Time Attestation Discharge Coordination Time (in mins): 30 Quality: Safe Use of Opioids Does Pt have an Active Cancer Diagnosis on the Problem List?: Yes Opioid Measure Date for [facility] Report: 08/30/25 Opioid Measure Time for [facility] Report: 10:00 Quality: Stroke Does the patient have a stroke diagnosis?: No Physical Exam Vital Signs: Vital Signs: Last Vital Signs Temp 100.1 F 09/29/25 07:26 Pulse 74 09/29/25 07:26 Resp 16 09/29/25 07:26 BP 123/59 L 09/29/25 07:26 Pulse Ox 92 09/29/25 07:26 O2 Del Method Room Air 09/29/25 07:26 O2 Flow Rate 2.0 09/28/25 13:56 BMI result Body Mass Index 24.6 Const: General: cooperative, healthy appearing and no acute distress Resp: Effort & Inspection: normal respiratory effort and able to speak in complete sentences Cardio: Rate: regular rate Peripheral pulses: Peripheral pulses 2+ throughout GI: Palpation (GI): Soft to palpation Skin: General skin exam: no rashes or lesions noted Extrem: Other: Left hip bandage is clean dry and intact no surrounding erythema or drainage He is able to flex and extend the knee. He is able to plantar and dorsiflex at the foot and ankle. Neurovascularly intact. XR pelvis 1-2V IMPRESSION: Status post left total hip arthroplasty. DS: Data Data Completed and Pending Pending studies at discharge: Pending at discharge 09/28/25 11:12 Surgical [PTH] Routine Labs on day of discharge: Laboratory Results - last 24 hr 09/29/25 05:25 WBC 5.7 RBC 4.07 L D Hgb 12.0 L D Hct 36.5 L D MCV 89.7 MCH 29.5 MCHC 32.9 RDW 15.6 Plt Count 218 D MPV 9.2 L Immature Gran % (Auto) 0.4 Neut % (Auto) 63.6 Lymph % (Auto) 15.8 L [place] % (Auto) 18.8 H Eos % (Auto) 0.9 Baso % (Auto) 0.5 Lymph # (Auto) 0.9 L [place] # (Auto) 1.1 Eos # (Auto) 0.1 Baso # (Auto) 0.0 Abs Immat Gran (auto) 0.02 Absolute Neuts (auto) 3.6 Absolute Nucleated RBC 0.000 Nucleated RBC % (auto) 0.0 Sodium 136 Potassium 3.9 Chloride 103 Carbon Dioxide 28 Anion Gap 9 L BUN 15 Creatinine 1.09 Estim Creat Clear Calc 74.3 Estimated GFR > 60 Fasting Glucose 110 H Calcium 8.1 L D Discharge Plan Discharge Patient Disposition: Home Health Service Referrals: Yessy Cheney PA-C [Physician National Expansion Recruiter, Orthopedics] - 2 Weeks Referral Note: 10/13/25 10:00 [facility] [place] [facility] Yessy Cheney PA-C Discharge Medications: New docusate sodium 100 mg Capsule 100 mg PO BID 7 Days Qty: 14 0RF celecoxib 200 mg Capsule 200 mg PO BID 30 Days Qty: 60 0RF acetaminophen 325 mg Tablet 650 mg PO Q6H PRN (Reason: Pain, Mild 1-3,Fever,Headache) 30 Days Qty: 240 0RF oxycodone 5 mg Tablet 5 mg PO Q4H PRN (Reason: Pain, Moderate(Pain Scale 4-6)) 7 Days Qty: 42 0RF Rx Instructions: Partial Fill upon patient request. enoxaparin 40 mg/0.4 mL Syringe 40 mg subcut Q24H 42 Days Qty: 16.8 0RF Continued multivitamin Tablet 1 tab PO DAILY diclofenac sodium 1 % gel 2 g topical QID PRN (Reason: Pain) cholecalciferol (vitamin D3) [Vitamin D3] 125 mcg (5,000 unit) Tablet 125 mcg PO DAILY bupropion HCl [Wellbutrin SR] 150 mg tablet sustained-release 12 hr 75 mg PO DAILY clonazepam 0.5 mg tablet 0.5 mg PO BEDTIME PRN (Reason: Anxiety) trazodone 50 mg tablet 25 mg PO BEDTIME PRN (Reason: Insomnia) Discontinued acetaminophen 650 mg Tablet Extended Release 650 mg PO Q12H PRN (Reason: Pain) diclofenac sodium 75 mg tablet,delayed release (DR/EC) 75 mg PO BID PRN (Reason: arthritis) Discharge Orders: Discharge Order (Routine); Ordered 09/29/25 Ordered By: Yessy Cheney Diet: Regular diet Activity on Discharge: Use cane or walker Activity Restrictions/Additional Instructions: Physical Therapy : Hip replacement- WBAT with walker, posterior precautions, gait training Use walker for ambulation Limit stair climbing No shower or tub bath No driving for 6 weeks Continue anticoagulant Keep Aquacel dressing clean, dry and intact. Follow up with orthopedics in 2 weeks -Bandage/Incision Site Care: -Ice 20mins at a time -Make sure you use a towel or cloth on your skin as a barrier -DO NOT remove the bandage -Keep Bandage clean, dry and intact -Do not get the bandage wet: -No tub bath, pools or hot tubs -If there are any concerns regarding the bandage please call orthopedics: [phone] -Hip Precautions: -Refrain from laying on side -No crossing the legs -Avoid low chairs and deep couches -Use supportive shoes with nonslip soles -Physical Therapy: -Patient is WBAT with the use of a walker -Strengthening: Quadriceps and hip muscles -Walking: Gait training and gradually increasing distance with walker -Ankle pumps and incentive spirometry to limit the risk of blood clot -Diet: -Resume regular diet as tolerated. -Drink plenty of fluids and eat a high-fiber foods to avoid constipation -This is a common side effect of pain medication) -Take stool softeners as prescribed -Blood Clot Prevention: -Take the prescribed blood thinner lovenox) as directed for 6 weeks -Perform ankle pumps and walk frequently with the walker and assistance if needed -Report calf pain, swelling, or shortness of breath immediately Print Language: Lao
--- NOTE | 2025-09-29 11:07 | MHC.CM.PN ---
pt lives alone will be dcd with hvns has own ride home
[2025-09-29] MEDS: oxyCODONE HCl Immed Release 5 MG TABLET PO (11:30)
[2025-09-29 11:56] VITALS: BP 130/58; PULSE 72; RESP 16; TEMP 36.6; O2SAT 99
== END 2025-09-29 13:00 | disposition home health service (06) ==
LOC: HO.SSS 07:06 → HO.S3 12:04
PROVIDERS: Nurse Practitioner; Physician Assistant; PCP Internal Medicine; Visit Provider Orthopaedic Surgery
PROC: (CPT 27130; principal; 2025-09-28 09:30)
DX: M16.12 Unilateral primary osteoarthritis, left hip (principal); F39 Unspecified mood [affective] disorder; F32.A Depression, unspecified; F41.9 Anxiety disorder, unspecified; F19.11 Other psychoactive substance abuse, in remission; F10.11 Alcohol abuse, in remission; I73.00 Raynaud's syndrome without gangrene; J21.0 Acute bronchiolitis due to respiratory syncytial virus; Z85.51 Personal history of malignant neoplasm of bladder; M54.30 Sciatica, unspecified side; Z79.899 Other long term (current) drug therapy; Z98.890 Other specified postprocedural states
CPT/HCPCS: 27130; 36415; 72170; 80048; 85014; 85018; 85025; 86850; 86900; 86901; 87640; 87641; 88304; 88305; 88311; 97162; 97166; 97530; A6260; C1713; C1776; J0131; J0668; J0690; J1171; J1650; J2003; J2151; J2250; J2405; J2704; J2795; J3010; J7120

== ENCOUNTER → 2025-09-28 07:05 | Outpatient (BNV) | payer BC, SELFPAY | PROVIDERS: PCP Internal Medicine; Visit Provider Orthopaedic Surgery | DX: Z47.1 Aftercare following joint replacement surgery (principal); Z96.642 Presence of left artificial hip joint; M16.12 Unilateral primary osteoarthritis, left hip | CPT/HCPCS: 27130; 99024; G0180 ==

== ENCOUNTER → 2025-09-28 07:05 | Outpatient (BNV) | payer BC, SELFPAY | PROVIDERS: PCP Internal Medicine; Visit Provider Nurse Practitioner Family | DX: M16.12 Unilateral primary osteoarthritis, left hip (principal) | CPT/HCPCS: 99252 ==

== ENCOUNTER → 2025-09-28 11:40 | Outpatient (BNV) | payer BC, SELFPAY | PROVIDERS: PCP Internal Medicine; Visit Provider Radiology Diagnostic Radiology | DX: Z96.642 Presence of left artificial hip joint (principal) | CPT/HCPCS: 72170 ==

== ENCOUNTER 2025-10-13 09:52 | Outpatient (AMB) | payer BC, SELFPAY ==
--- OUTSIDE RECORDS SUMMARY | 2025-10-08 23:59 | XMS_ITS | Continuity of Care Document ---
Author Organization [facility] Address [address] [place] [address]- Care Team Providers Care Dehydration Plant Operator Name Role Phone Irvin Redding MD Primary Care Physician Encounter [facility] [place] Date(s): 09/08/25 - 10/08/25 [facility] [address], [place] [address] Attending Physician: AdmtrItalo Admitting Physician: Admtr ArSai Referring Physician: Admtr, Ar8 Encounter Type: Triage Allergies, Adverse Reactions, Alerts No Known Allergies Immunizations Given and Recorded Vaccine Date Status Refusal Reason influenza virus vaccine, inactivated 07/21/24 Petey rded influenza virus vaccine, inactivated 07/21/23 Petey rded influenza virus vaccine, inactivated 09/01/22 Petey rded influenza virus vaccine, inactivated 08/05/21 Petey rded influenza virus vaccine, inactivated 06/28/20 Petey rded influenza virus vaccine, inactivated 07/26/19 Petey rded influenza virus vaccine, inactivated 1 08/07/18 Gi nina influenza virus vaccine, inactivated 10/04/15 Give n [id number] 12y+ bivalent booster vax 09/16/22 Recorded SARS-CoV-2 (COVID-19) mRNA BNT-162b2 vac 09/10/21 Recorded SARS-CoV-2 (COVID-19) mRNA BNT-162b2 vac 02/10/21 Recorded SARS-CoV-2 (COVID-19) mRNA BNT-162b2 vac 01/19/21 Recorded zoster vaccine, inactivated 2 05/08/19 Recorded zoster vaccine, inactivated 3 01/10/19 Recorded tetanus-diphtheria toxoids (Td) 4 08/07/18 Given 1Result Comment: [08/07/2018] given w/out incident [facility]: [id number] 2Result Comment: edinson 3Rescarl Comment: edinson 4Result Comment: [08/07/2018] given w/out incident Medications Albuterol (Eqv-Proventil HFA) 90 mcg/inh inhalation aerosol 1 inhalation, Inhalation, Every 6 hours, PRN NEEDED FOR SHORTNESS OF BREATH OR WHEEZING, # 6.7 Gm, 3 Refills, Maintenance, 01/21/25 7:10:00 AM EDT, [id number], 184.1, cm, 12/03/24 15:00:00 EST, Height, 88.2, kg, 12/03/24 15:00:00 EST, Dry Weight Start Date: 01/21/25 Status: Ordered Medication Dispense Status: Completed Quantity: 6.7 Unit: g Total Allowed Fills: 1 Fills Dispensed: 0 buPROPion 150 mg/24 hours (XL) oral tablet, extended release TAKE 1 TABLET BY MOUTH EVERY DAY Start Date: 09/08/25 Status: Ordered Medication Dispense Status: Completed Total Allowed Fills: 1 Fills Dispensed: 0 clonazePAM 0.5 mg oral tablet TAKE 1/2 TABLET BY MOUTH EVERY MORNING AND 1 TABLET EVERY NIGHT AT BEDTIME NEEDED Start Date: 09/08/25 Status: Ordered Medication Dispense Status: Completed Total Allowed Fills: 1 Fills Dispensed: 0 diclofenac sodium 75 mg oral delayed release tablet 1 tablet, By Mouth, 2 times a day with meals, PRN NEEDED FOR ARTHRITIS, # 60 tablet, 6 Refills, Maintenance, 09/06/25 12:26:00 PM EST, [id number], 184.1, cm, 07/19/25 13:04:00 EDT, Height, 87.3, kg, 07/19/25 13:04:00 EDT, Dry Weight Start Date: 09/06/25 Status: Ordered Medication Dispense Status: Completed Quantity: 60.0 Unit: tablet Total Allowed Fills: 1 Fills Dispensed: 0 traZODone 50 mg oral tablet TAKE 1/2 TABLET BY MOUTH AT BEDTIME Start Date: 09/08/25 Status: Ordered Medication Dispense Status: Completed Total [...] total right hip arthroplasty Confirmed 2010 Active S/P total left hip arthroplasty Confirmed 09/28/25 Active History of total right knee replacement [...] Safety Implantable Status Assigning Authority Unknown Unknown [id number] Unknown 08/10/25 Unknown Unknown Active Unknown Unknown Unknown [id number] Unknown 08/10/25 Unknown Unknown Active Unknown Procedure Provider Procedure Date Device Type Site Repair Hernia Inguinal Laparoscopic Alvaro Wong MD 01/30/24 Unknown Groin Bilatera l Device Identifier Serial Number Lot or Batch Number Manufacturing Date Expiration Date Distinct Identification Code MRI Safety Implantable Status Assigning Authority Unknown Unknown [id number] Unknown 06/10/25 Unknown Unknown Active Unknown Procedure Provider Procedure Date Device Type Site Repair Hernia Inguinal Laparoscopic Alvaro Wong MD 01/30/24 Unknown Groin Left Device Identifier Serial Number Lot or Batch Number Manufacturing Date Expiration Date Distinct Identification Code MRI Safety Implantable Status Assigning Authority Unknown Unknown [id number] Unknown 04/10/25 Unknown Unknown Active Unknown Procedure Provider Procedure Date Device Type Site Repair Hernia Inguinal Laparoscopic Alvaro Wong MD 01/30/24 Unknown Groin Right Device Identifier Serial Number Lot or Batch Number Manufacturing Date Expiration Date Distinct Identification Code MRI Safety Implantable Status Assigning Authority Unknown Unknown [id number] Unknown 03/10/25 Unknown Unknown Active Unknown Patient Care team information Care Team Personnel Name: Wale YEUNG, Myra Blackburn Position: [facility] RN Member Role: Primary Care Nurse Name: Irvin Redding MD Position: [facility] Physician - Primary Care Member Role: PCP Address: [address] [place] [address] Adult & Pediatric Medicine [place], [place] [address] Telecom: Name: Roger YEUNG, Ade Reddy Position: [facility] Onco RN Member Role: Primary Care Nurse Care Team Related Persons Name: RON CMARTHUR Name: CECILE RODRIGUEZ Insurance Providers Guarantor name: SEBASTIAN RODRIGUEZ [facility] Information #: 1 Payer: [employer] [facility] Payer Identifier: SOUMYA Member Number: [id number] Group Number: [id number] Subscriber Identifier: SOUMYA Relationship to Subscriber: self Coverage Type: NA Coverage Verification Date: NA Telecom: NA Address: NA
--- NOTE | 2025-10-13 09:55 | MHC.OFFVIS ---
Intake Visit Reasons: 1st PO L LATRICIA w/NE 09/28/25 Intake Note: Kendell is a 65 year old male who presents today post operatively after undergoing a left LATRICIA, performed by Dr. Corcoran on 09/28/25. Patient reports he is doing well, states no pain at the moment. He uses Tylenol at night that helps. He feels he no longer needs a cane to walk. Allergies No Known Allergies Allergy (Verified 10/13/25 09:58) Medication List - Last Reconciled 10/13/25 by Yessy Cheney PA-C acetaminophen 650 mg (2 x 325 mg) PO Q6H PRN 30 days bupropion HCl SR (Wellbutrin SR) 75 mg PO DAILY celecoxib 200 mg PO BID 30 days cholecalciferol (vitamin D3) (Vitamin D3) 125 mcg PO DAILY clonazepam 0.5 mg PO BEDTIME PRN diclofenac sodium 1% 2 grams topical QID PRN docusate sodium 100 mg PO BID 7 days enoxaparin 40 mg (0.4 mL) subcut Q24H 42 days multivitamin 1 tab PO DAILY oxycodone 5 mg PO Q4H PRN 7 days trazodone 25 mg PO BEDTIME PRN HPI Comments Details: History of Present Illness The patient is a 65 year old male presenting for a two-week postoperative follow-up visit after left hip replacement 09/28/[address] Corcoran. He reports feeling good but experiences discomfort, which he does not characterize as pain, when sitting for more than 30 minutes. He has not been taking any narcotic pain medication. Regarding activity, the patient walks about two miles intermittently each day and can go up and down stairs without assistance. He has been compliant with his home physical therapy exercises and has an appointment to transition to outpatient therapy. Social History - Activity Level: The patient walks approximately two miles daily on an intermittent basis. - Functional Status: He is able to ascend and descend stairs without assistance but reports discomfort with sitting for periods longer than 30 minutes. - Exercise: He is compliant with home physical therapy exercises and has inquired about timelines for returning to swimming. [facility] Medical History Anxiety RSV (acute bronchiolitis due to respiratory syncytial virus) COVID-19 Bladder cancer Hx of substance abuse History of alcohol abuse Hypogonadism in male Osteoarthritis Sciatica Raynauds syndrome Elevated PSA Depression ACL tear Aftercare following bilateral shoulder joint replacement surgery Surgical History History of esophagogastroduodenoscopy (EGD) History of total right knee replacement (~2021) History of repair of ACL Hx of blepharoplasty Hx of laminectomy History of right hip replacement (~2010) H/O colonoscopy S/P bilateral inguinal hernia repair History of transurethral resection of ureterocele Hx of shoulder replacement (~2013) Social History Household Members: None Housing: House Housing Other:: 2 floors Are you a primary day care provider to a significant other at home: No Do you presently have visiting nurse or other home services: No Comment: COUNTS CORRECT Patient Tobacco Use Status: Never used Tobacco Current occupational status: employed Current occupation: Contractor Review of Systems Narrative Review of Systems - Musculoskeletal: Reports discomfort in the surgical hip area after sitting for longer than 30 minutes. - Constitutional: Reports feeling good. Physical Exam Exam Exam: Left hip incision is clean dry and intact. No surrounding erythema. He has no pain with hip range of motion or flexion. Calf is supple and nontender neurovascularly intact. Assessment & Plan Assessment & Plan (1) Status post total hip replacement, left: Code(s): Z96.642 - Presence of left artificial hip joint Category: Surgical Plan Plan 1. Postoperative Follow-Up After Left Hip Surgery Surgical marquis will be removed today. The patient may shower but should avoid soaking or scrubbing the incision site for another two weeks to allow for complete healing. Driving is to be avoided for a total of six weeks post-surgery. The patient was advised to wait three months before resuming swimming breaststroke, to allow for adequate tissue healing and to discuss modifications with his physical therapist. A prescription for outpatient physical therapy at [facility] in [place] will be faxed. A follow-up appointment is scheduled for November 11. 2. Postoperative Pain And Inflammation Management The patient is no longer taking narcotic pain medication. He was advised that continuing Celebrex for the first four to six weeks post-surgery can be beneficial for managing swelling and soreness. 3. Prophylaxis For Venous Thromboembolism The patient will continue taking the prescribed blood thinner for a total of six weeks. Consent Patient was informed and verbally consented to the use of an ambient scribe for clinic note documentation during this visit. Coding Level of Care Code Global (66717) Diagnoses Status post total hip replacement, left Z96.642
--- OUTSIDE RECORDS SUMMARY | 2025-10-13 10:37 | XMS_ITS | Clinical Summary ---
Author Organization [facility] Prior to 03/13/25 Address [address] [place] [address] Care Team Providers Care Radiotelegraph Operator Servicer Name Role Phone Irvin Redding MD Primary Care Provider [phone] Allergies No known active allergies Medications Medication [...] age to complete this topic Care Teams Radiotelegraph Operator Servicer Relationship Specialty Start Date End Date Irvin Redding MD [address] [address] PCP - General Defense Attorney 10/22/19
--- OUTSIDE RECORDS SUMMARY | 2025-10-13 10:37 | XMS_ITS | Encounter Summary ---
Author Organization [facility] Address [address] [place] [address] Care Team Providers Care Executive Administrative Assistant Name Role Phone Irvin Redding MD Primary Care Provider [phone] Encounter Details Date Type Department Care Team (Late st Contact Info) Description 02/17/2025 Lab Requisition [facility] - Main Lab [address] [facility] [place] [phone] Kendell Craft MD [address] [place] [address] Elevated prostate specific antigen (PSA); Neoplasm of [...] AM EDT) Final Diagnosis A. Urine, Cystoscopic, ([id number]): HIGH GRADE UROTHELIAL CARCINOMA Results of UroVysion fluorescence in situ hybridization (FISH) testing: CEP3: Abnormal CEP7: Abnormal CEP17: Abnormal LSI 9p21: Normal Interpretation: Abnormal profile Controls stained appropriately. Note: Abnormal results are considered suspicious for urothelial carcinoma. 03/03/2025 5:02 PM EDT [facility] at 1702 EDT Clinical Information Neoplasm of uncertain behavior unspecified D48.9 Elevated prostate-specifi c antigen (PSA) R97.20 Urine Cytology/FISH (now) 03/03/2025 5:02 PM EDT [facility] Gross Description A. Cystoscopic, ([id number]): Received one ThinPrep slide for cytology and one ThinPrep slide for UroVysion FISH 03/03/2025 5:02 PM EDT [facility] Disclaimer Unless otherwise specified, all tissue is 10% NB formalin fixed and paraffin embedded. Technical pathology services provided by [facility] at [address] [facility] [address] [address] (CLIA #[id number]/Latonia Bruno MD, Vegetable Thinner) 03/03/2025 5:02 PM EDT [facility] Tissue Cystoscope / Unknown 02/12/2025 02/17/2025 2:18 PM EDT us Kendell Craft MD LAB PATHOLOGY ORDERABLES Fi nal Result [facility] [address] [place] [address], documented in this encounter Visit Diagnoses Diagnosis Elevated prostate specific antigen (PSA) Neoplasm of uncertain behavior, unspecified documented in this encounter Care Teams Executive Administrative Assistant Relationship Specialty Start Date End Date Irvin Redding MD [address] [place] [address] PCP - General Steam Plant Control Room Operator 10/22/19 documented as of this encounter
--- OUTSIDE RECORDS SUMMARY | 2025-10-13 10:37 | XMS_ITS | Encounter Summary ---
Author Organization [facility] Address [address] [place] [address] Care Team Providers Care Sourcing Specialist Name Role Phone Irvin Redding MD Primary Care Provider [phone] Encounter Details Date Type Department Care Team (Late st Contact Info) Description 02/15/[address] [facility] - Main Lab [address] [facility] [place] [phone] Kendell Craft MD [address] [facility] [address] [place] [address] Elevated prostate specific antigen (PSA) Social History [...] (02/12/2025) Final Diagnosis A. Prostate, Left Middle [place] Biopsy: -BENIGN PROSTATE TISSUE B. Prostate, Left Lateral [place] Biopsy: -BENIGN PROSTATE TISSUE C. Prostate, Left Middle Middle Biopsy: -BENIGN PROSTATE TISSUE D. Prostate, Left Lateral Middle Biopsy: -BENIGN PROSTATE TISSUE E. Prostate, Left Middle [place] Biopsy: -BENIGN PROSTATE TISSUE F. Prostate, Left Lateral Base Biopsy: -BENIGN PROSTATE TISSUE G. Prostate, Right Middle [place] Biopsy: -BENIGN PROSTATE TISSUE H. Prostate, Right Lateral [place] Biopsy: -BENIGN PROSTATE TISSUE I. Prostate, Right [...] situ: Not identified 02/16/2025 3:33 PM EDT [facility] at 1533 EDT Clinical Information Elevated PSA R97.20 PSA: 4.9 (02/12/25) [id number] 02/16/2025 3:33 PM EDT [facility] Gross Description A. Prostate, Left Middle [place] Biopsy: Received, properly labeled, are two H and E stained slides and two unstained slides. B. Prostate, Left Lateral [place] Biopsy: Received, properly labeled, are two H [...] two unstained slides. G. Prostate, Right Middle [place] Biopsy: Received, properly labeled, are two H and E stained slides and two unstained slides. H. Prostate, Right Lateral [place] Biopsy: Received, properly labeled, are two H [...] multiple levels. /al 02/16/2025 3:33 PM EDT [facility] Disclaimer Unless otherwise specified, all tissue is 10% NB formalin fixed and paraffin embedded. Technical pathology services provided by [facility] at [address], [place] [address] (CLIA #[id number]/S davion Bruno MD, Motor Vehicle Operator Road Supervisor) 02/16/2025 3:33 PM EDT [facility] [...] MD LAB PATHOLOGY ORDERABLES Fi nal Result [facility] [address] [place] [address], documented in this encounter Visit Diagnoses Diagnosis Elevated prostate specific antigen (PSA) documented in this encounter Care Teams Sourcing Specialist Relationship Specialty Start Date End Date Irvin Redding MD [address] [place] [address] PCP - General Aerial Gunner 10/22/19 documented as of this encounter
--- OUTSIDE RECORDS SUMMARY | 2025-10-13 10:37 | XMS_ITS | Encounter Summary ---
[facility] Address [address] [place] [address] Care Team Providers Care Hand Button Splitter Name Role Phone Irvin Redding MD Primary Care Provider [phone] Encounter Details Date Type Department Care Team (Late st Contact Info) Description 03/22/2025 Lab Requisition [facility] - Main Lab [address] [facility] [place] [phone] Geovany Jung MD [address] [facility] [address] [place] [phone] Malignant neoplasm of posterior wall of bladder [...] present for evaluation. 04/06/2025 2:36 PM EDT [facility] Addendum electronically signed by Gentry Henson MD on 04/06/2025 at 1436 EDT Final Diagnosis Urinary Bladder, biopsies: -UROTHELIAL CARCINOMA IN SITU 04/06/2025 2:36 PM EDT [facility] at 1255 EDT Clinical Information Z85.51 H/O bladder neoplasm (malignant) C67.4 [id number] 04/06/2025 2:36 PM EDT [facility] Gross Description A. Urinary Bladder, biopsies: Labeled Bladder Biopsies . Received in formalin is a 1.5x1.0x0.5cm aggregate of friable, timmons-pink tissue fragments, which are filtered through paper and submitted in toto in one cassette, multiple pieces, multiple levels. /al 04/06/2025 2:36 PM EDT [facility] Disclaimer Unless otherwise specified, all tissue is 10% NB formalin fixed and paraffin embedded. Technical pathology services provided by [facility]rology at [address], [place] [address] (CLIA #[id number]/S davion Bruno MD, Truck Rental Manager) 04/06/2025 2:36 PM EDT [facility] Tissue Urinary bladder structure / Unknown 03/19/2025 03/22/2025 3:03 PM EDT Geovany Jung MD LAB PATHOLOGY ORDERABLES Edite d Result - Final [facility] [address] [place] [address], documented in this encounter Visit Diagnoses Diagnosis Malignant neoplasm of posterior wall of bladder (CMS/HCC V24, CMS/HCC V28) Malignant neoplasm of posterior wall of urinary bladder documented in this encounter Care Teams Hand Button Splitter Relationship Specialty Start Date End Date Irvin Redding MD [address] [place] [address] PCP - General Picture Booker 10/22/19 documented as of this encounter
--- OUTSIDE RECORDS SUMMARY | 2025-10-13 10:37 | XMS_ITS | Encounter Summary ---
Author Organization [facility] Address [address] [place] [address] Care Team Providers Care Piano Regulator Name Role Phone Irvin Redding MD Primary Care Provider [phone] Encounter Details Date Type Department Care Team (Late st Contact Info) Description 09/08/2025 Lab Requisition [facility] - Main Lab [address] [facility] [place] [phone] Kendell Craft MD [address] [email or web address] [address] [place] [address] Carcinoma in situ of bladder Social History Tobacco Use Types [...] Priority Date/Time Associated Diagnosis Comments NON-GYNECOLOGIC CYTOLOGY Routine 09/01/2025 12:00 AM EST Carcinoma in situ of bladder documented in this encounter Results * Non-gynecologic cytology (09/01/2025 12:00 AM EST) Final Diagnosis A. Urine, Voided, ([id number]): Atypical urothelial cells present. Acute inflammatory cells are present. Results of UroVysion fluorescence in situ hybridization (FISH) testing: CEP3: Abnormal CEP7: Abnormal CEP17: Abnormal LSI 9p21: Normal Interpretation: Abnormal profile Controls stained appropriately. Note: Abnormal results are considered suspicious for urothelial carcinoma. 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 Urine, Voided, ([id number]): Received one ThinPrep slide for cytology and one ThinPrep slide for UroVysion FISH 09/13/2025 9:59 AM [facility] Disclaimer Unless otherwise specified, all tissue is 10% NB formalin fixed and paraffin embedded. Technical pathology services provided by [facility]rology at [address] [facility] [address] [address] (CLIA #[id number]/Latonia Bruno MD, Superintendent Meter Tests) 09/13/2025 9:59 AM [facility] Urine Urine specimen from urethra / Unknown 09/01/2025 09/08/2025 1:36 PM EST us Kendell Craft MD LAB CYTOLOGY ORDERABLES Fin al Result [facility] [address] [place] [address], documented in this encounter Visit Diagnoses Diagnosis Carcinoma in situ of bladder documented in this encounter Care Teams Piano Regulator Relationship Specialty Start Date End Date Irvin Redding MD [address] [place] [address] PCP - General Cad Developer 10/22/19 documented as of this encounter
--- OUTSIDE RECORDS SUMMARY | 2025-10-13 10:37 | XMS_ITS | Clinical Summary ---
Author Organization [address] Address [address] [place] [address] Phone Care Team Providers Care Auto Mechanic Supervisor Name Role Phone Irvin Rdeding MD Primary Care Provider [phone] Encounters Date Type Department Care Team Description 09/08/2025 Lab Requisition [facility] - Main Lab [address] [place] [address] Kendell Craft MD Carcinoma in situ of bladder from Last 3 Months Surgical [...] Health Maintenance Due Date Last Done Comments Pneumococcal Vaccine: 50+ Years (1 of 1 - PCV) 2008 Abdominal Aortic Aneurysm (AAA) Screen 09/16/2022 Cholesterol Screening (Lipid Panel) 09/16/2022 Hepatitis C Screening 09/16/2022 Social Influencers of Health Screening 09/16/2022 Falls Risk Assessment 2023 Depression Screening 10/14/2024 COVID-19 Vaccine ( season) 2025 09/10/2021, 02/10/2021, 01/19/2021 Influenza Vaccine (#1) 2025 4, 07/21/2023, 09/01/2022, Additional history exists DTaP,Tdap,and Td Vaccines (2 - Td or Tdap) 08/07/2028 08/07/2018 RSV Immunization Adult Patients (1 - 1-dose 75+ series) 2033 Colorectal Cancer Screening: Colonoscopy 05/06/2033 05/06/2023 Zoster Vaccines Completed 05/08/2019, 01/10/2019 HIB Vaccines Aged Out No longer eligi [...] to complete this topic RSV Immunization Patients Under 20 months Aged Out No longer eligible based on patient's age to complete this topic Varicella Vaccines Aged Out No longer eligible based on patient's age to complete this topic Procedures Procedure Name Priority Date/Time Associated Diagnosis Comments NON-GYNECOLOGIC CYTOLOGY Routine 09/01/2025 12:00 AM EST Carcinoma in situ of bladder from Last 3 Months Results * Non-gynecologic cytology (09/01/2025 12:00 AM EST) Final Diagnosis A. Urine, Voided, ([id number]): Atypical urothelial cells present. Acute inflammatory cells are present. Results of UroVysion fluorescence in situ hybridization (FISH) testing: CEP3: Abnormal CEP7: Abnormal CEP17: Abnormal LSI 9p21: Normal Interpretation: Abnormal profile Controls stained appropriately. Note: Abnormal results are considered suspicious for urothelial carcinoma. 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 Urine, Voided, ([id number]): Received one ThinPrep slide for cytology and one ThinPrep slide for UroVysion FISH 09/13/2025 9:59 AM [facility] Disclaimer Unless otherwise specified, all tissue is 10% NB formalin fixed and paraffin embedded. Technical pathology services provided by [facility] at [address] [facility] [address], [place] [address] (CLIA #[id number]/Latonia Bruno MD, Solar Technician) 09/13/2025 9:59 AM [facility] Urine Urine specimen from urethra / Unknown 09/01/2025 09/08/2025 1:36 PM EST us Kendell Craft MD LAB CYTOLOGY ORDERABLES Fin al Result [facility] [address] [place] [address], from Last 3 Months Insurance MEDICARE [facility] ([place]) [facility] MAIL ADMIN [address] ([place]) Advance Directives Documents on File Type Date Recorded Patient Notary Public Expl anation Health Care Decision (hx) 07/27/2022 AD SHIN DIRECTIVE Health Care Decision (hx) 07/27/2022 AD SHIN DIRECTIVE Health Care Decision (hx) 07/27/2022 AD SHIN DIRECTIVE Care Teams Auto Mechanic Supervisor Relationship Specialty Start Date End Date Irvin Redding MD [facility] [place] [address] PCP - General Keymodule Assembly Machine Tender 10/22/19
--- OUTSIDE RECORDS SUMMARY | 2025-10-13 10:37 | XMS_ITS | Patient Health Record ---
Author Organization [facility] Address [address] [place] [address] Care Team Providers Care Hotel Service Manager Name Role Phone HI ZAZUETA MD Primary Care Provider YENIFER Diaz [phone] Reason For Referral No Information Medications Medication SIG (Take, Route, Frequency, Duration) Notes Start Date End Date Status SOBOZONE 12 MG DAILY *Please review f or potential replacement for e-prescription and drug interaction check* Active traZODone HCl 50 MG Tablet 1/2 tab(s) orally once a day (at bedtime) as needed Active clonazePAM 0.5 MG Tablet Disintegrating 1 tab(s) orally up to 1 mg as needed at night Active Multivitamin - Tablet 1 tab(s) orally once a day; Duration: 30 day(s) Active AndroGel Pump 1% GEL 6.5G APPLIED TOPICALLY ONCE A DAY NAME ONLY Conversion from Multum Review and pick correct strength-formulati on from Axentis Softwarean options. If intended option is not shown, discontinue and re-order from Quick Search. Active Wellbutrin SR 150 MG Tablet Extended Release 12 Hour 1 tab(s) orally once a day; Duration: 30 day(s) Active Golytely - POWDER FOR RECONSTITUTION 240 ML ORALLY EVERY 15 MINUTES; Duration: 16 DOSE(S) NAME ONLY Conversion from Multum Review and pick correct strength-formulati on from Breakerspan options. If intended option is not shown, discontinue and re-order from Quick Search. 09/17/2018 Active Social History Tobacco Use: Social History Observation Description Date Details (start date - stop date) Never Smoker NA - NA Social History Tobacco Use: Social Info Question Answer Notes Smoking Are you a: never smoker Additional Details Category Social Info Options Details General Occupation: Out of work [employer]- last company he worked for [employer] alcohol use: no drug use: no Coffee/Tea/Soda: 1, Coffee, not daily Marital Status single smokers in household no Problems Problem Type SNOMED Code ICD Code Onset Dates Problem Status W/U Status Risk Notes Problem Hiccoughs (48114936) Hiccup (786.8) Active confirmed Problem Belching (58201338) Belching (787.3) Active confirmed Problem Family history of malignant neoplasm of gastrointestinal tract (365311354) FAMILY HX-GI MALIGNANCY (V16.0) Active confirmed Problem Diarrhea (20267569) Diarrhea (R19.7) Active confirmed since Thanksgiving Problem Family history of malignant neoplasm of gastrointestinal tract (499385747) Family history of malignant neoplasm of gastrointestinal tract (Z80.0) Active confirmed Plan Of Treatment No Information Insurance Providers Payer Name Payer Address Payer Phone Subscriber Number Group Number Insured Name Patient Relationship to Insured Coverage Start Date Coverage End Date [employer] [address] [place] [address] [id number] SEBASTIAN RODRIGUEZ Self - patient is the insured Medical (General) History Medical History History ICD Code anxiety Colonoscopy 2007-? Dr Cedillo incompl ete poor tolerance family hx colon cancer family h/o colon polyps Colonoscopy 01/21/13 Non-blee ding int hemorrhoids EGD Normal stomach,normal duodenum Z-line regular 48 cm from incisors no gross lesions in esoph depression diarrhea colonoscopy 11/11/15 normal muco sa biopsied recall 2020 Colonoscopy 09/16/2018 - One 6mm polyp o therwise nml. Path: Surgical History Surgery Date(Month/Year) pilonidal cyst - sarcum 01/2018 knee surgery - right meniscus tear 2014 hip replacement R shoulder replacement bilateral back surgery Hospitalization History Reason Date(Month/Year) as above
--- OUTSIDE RECORDS SUMMARY | 2025-10-13 10:37 | XMS_ITS | Clinical Summary ---
Author Organization [facility] Address [address] [place] [address] Care Team Providers Care Rubber Splicer Name Role Phone Irvin Redding MD Primary Care Provider [phone] Allergies No known active allergies Medications buPROPion [...] topic Insurance MEDICARE PART A & B [place] [id number] Care Teams Rubber Splicer Relationship Specialty Start Date End Date Irvin Redding MD [address] [place] [address] PCP - General 04/23/23
--- OUTSIDE RECORDS SUMMARY | 2025-10-13 10:37 | XMS_ITS | Encounter Summary ---
Author Organization [facility] Address [address] [place] [address] Care Team Providers Care Document Control Supervisor Name Role Phone Irvin Redding MD Primary Care Provider [phone] Encounter Details Date Type Department Care Team (Late st Contact Info) Description 07/12/2025 Lab Requisition [facility] - Main Lab [address] [facility] [place] [phone] Kendell Craft MD [address] [facility] [address] [place] [address] Personal history of malignant neoplasm of bladder; [...] 12:00 AM EDT) Final Diagnosis A. Cystoscopic, [id number]: Negative for high grade urothelial carcinoma. Acute inflammatory cells are present. Results of UroVysion fluorescence in situ hybridization (FISH) testing: CEP3: Normal CEP7: Normal CEP17: Normal LSI 9p21: Normal Interpretation: Normal profile Controls stained appropriately. Note: The results are intended as a screening device and should be interpreted in association with other clinical and pathological findings. 07/28/2025 5:02 PM EDT [facility] at 1702 EDT Specimen A Adequacy Satisfactory for evaluation 07/28/2025 5:02 PM EDT [facility] Clinical Information Z85.51 Personal history of malignant neoplasm D49.4 Neoplasm of unspecified behavior... Urine Cytology/FISH (now) 07/28/2025 5:02 PM EDT [facility] Gross Description A. Cystoscopic, [id number]: Received one ThinPrep slide for cytology and one ThinPrep slide for UroVysion FISH 07/28/2025 5:02 PM EDT [facility] Disclaimer Unless otherwise specified, all tissue is 10% NB formalin fixed and paraffin embedded. Technical pathology services provided by [facility] at [address] [facility] [address] [address] (CLIA #[id number]/Latonia Bruno MD, Poiser Balance) 07/28/2025 5:02 PM EDT [facility] Urine Cystoscope / Unknown 07/01/2025 07/12/2025 10:48 AM EDT us Kendell Craft MD LAB CYTOLOGY ORDERABLES Fin al Result [facility] [address] [place] [address], documented in this encounter Visit Diagnoses Diagnosis Personal history of malignant neoplasm of bladder Neoplasm of unspecified behavior of bladder documented in this encounter Care Teams Document Control Supervisor Relationship Specialty Start Date End Date Irvin Redding MD [address] [place] [address] PCP - General Obstetrician 10/22/19 documented as of this encounter
--- OUTSIDE RECORDS SUMMARY | 2025-10-13 10:37 | XMS_ITS | Encounter Summary ---
[facility] Address [address] [place] [address] Care Team Providers Care Water Ski Assembler Name Role Phone Irvin Redding MD Primary Care Provider [phone] Encounter Details Date Type Department Care Team (Late st Contact Info) Description 07/06/[address] [facility] - Main Lab [address] [facility] [place] [phone] Kenedll Craft MD [address] [facility] [address] [place] [address] Neoplasm of unspecified behavior of bladder; Personal [...] EXTENSIVELY (>90%) DENUDED 07/07/2025 9:10 AM EDT [facility] at 0910 EDT Comment While no neoplasm is observed in this specimen, denudation may sometimes reflect cases of CIS where the neoplastic cells have shed as a result of discohesion. Additional tissue and/or cytology sampling may be helpful, if clinically indicated. 07/07/2025 9:[address] [facility] Clinical Information Z85.51 - H/O Bladder neoplasm (malignant) D49.4 [id number] 07/07/2025 9:[address] [facility] [...] paraffin embedded. Technical pathology services provided by [facility] [address] [facility] [address], [place] [address] (CLIA #[id number]/Sa penny Bruno MD, Char Filter Operator Helper) 07/07/2025 9:[address] [facility] Tissue Urinary bladder structure / Unknown 07/02/2025 07/06/2025 12:27 PM EDT us Kendell Craft MD LAB PATHOLOGY ORDERABLES Fi nal Result [facility] [address] [place] [address], documented in this encounter Visit Diagnoses Diagnosis Neoplasm of unspecified behavior of bladder Personal history of malignant neoplasm of bladder documented in this encounter Care Teams Water Ski Assembler Relationship Specialty Start Date End Date Irvin Redding MD [address] [place] [address] PCP - General Belt Measurer 10/22/19 documented as of this encounter
--- OUTSIDE RECORDS SUMMARY | 2025-10-13 10:37 | XMS_ITS | Encounter Summary ---
Author Organization [facility] Address [address] [place] [address] Care Team Providers Care County Home Demonstrator Name Role Phone Irvin Redding MD Primary Care Provider [phone] Encounter Details Date Type Department Care Team (Late st Contact Info) Description 02/19/2025 Lab Requisition [facility] - Main Lab [address] [facility] [place] [address] Geovany Jung MD [address] [facility] [address] [place] [phone] Neoplasm of unspecified behavior of bladder Social [...] situ: Not identified 02/24/2025 2:12 PM EDT [facility] at 1412 EDT Clinical Information Z85.51 - H/O bladder neoplasm (malignant) [id number] 02/24/2025 2:12 PM EDT [facility] Gross Description A. Urinary Bladder, Tumor: Labeled bladder tumor . Received in formalin is a 1.1 x 0.7 x 0.4 cm aggregate of friable, pink-timmons tissue fragments. The specimen is wrapped in paper and submitted in toto in 2 cassettes, multiple pieces each. /al 02/24/2025 2:12 PM EDT [facility] Disclaimer Unless otherwise specified, all tissue is 10% NB formalin fixed and paraffin embedded. Technical pathology services provided by [facility] at [address] [facility] [address] [address] (CLIA #[id number]/S davion Bruno MD, Director Of Philanthropy) 02/24/2025 2:12 PM EDT [facility] Tissue Urinary bladder structure / Unknown 02/18/2025 02/19/2025 3:49 PM EDT Geovany Jung MD LAB PATHOLOGY ORDERABLES Final Result [facility] [address] [place] [address], documented in this encounter Visit Diagnoses Diagnosis Neoplasm of unspecified behavior of bladder documented in this encounter Care Teams County Home Demonstrator Relationship Specialty Start Date End Date Irvin Redding MD [address] [place] [address] PCP - General Grill Associate 10/22/19 documented as of this encounter
== END 2025-10-13 10:26 | disposition home or self-care (01) ==
LOC: HO.HOS 09:53
PROVIDERS: Visit Provider Physician Assistant
DX: Z96.642 Presence of left artificial hip joint (principal)
CPT/HCPCS: 99024